=== PATIENT | female | born 1935 | race Caucasian/White ===

== ENCOUNTER → 2016-04-07 | Emergency (ER) | payer MEDICARE ==
--- NOTE | 2016-04-07 12:44 | ED ---
Shortness of Breath - HPI Summary HPI Summary: Patient presents for evaluation of recurrent shortness of breath. Patient was at home and feeling congested, but then became scared and asked her to bring her to the hospital for evaluation. Symptoms are now resolved without allev factors attempted. Did not smoke today before the event. Denies chest pain, systemic symptoms, headache, back/abd pain. No specific aggrav factors. - History of Current Complaint Chief Complaint: EDShortnessOfBreath Time Seen by Provider: 04/07/16 12:21 Hx Obtained From: Patient, Family/Leather Skinner Onset/Duration: Sudden Onset, Resolved Timing: Intermittent Episodes Lasting: Current Severity: None Aggrevating Factors: Nothing Alleviating Factors: Nothing Associated Signs & Symptoms: Cough (Productive) - Allergy/Home Medications Allergies/Adverse Reactions: Allergies Allergy/AdvReac Type Severity Reaction Status Date / Time No Known Allergies Allergy Verified 09/26/13 08:36 Home Medications: Home Medications Azithromycin TAB* [Zithromax TAB (Z-ESPERANZA) 250 mg #6 tabs] 250 mg PO DAILY [History Confirmed 04/07/16] Donepezil TAB* [Aricept TAB*] 10 mg PO DAILY 04/07/16 [History Confirmed ] Memantine TAB* [Namenda TAB*] 10 mg PO BID 04/07/16 [History Confirmed 04/07/16] Sertraline* [Zoloft*] 50 mg PO DAILY 04/07/16 [History Confirmed 04/07/16] predniSONE TAB* [Deltasone TAB*] 40 mg PO DAILY 04/07/16 [History Confirmed 05/19] PMH/Surg Hx/FS Hx/Imm Hx Endocrine/Hematology History: Reports: Hx Thyroid Disease Cardiovascular History: Reports: Hx Hypercholesterolemia Respiratory History: Reports: Hx Chronic Obstructive Pulmonary Disease (COPD) Sensory History: Reports: Hx Contacts or Glasses Denies: Hx Hearing Aid Opthamlomology History: Reports: Hx Contacts or Glasses - Surgical History Surgery Procedure, Year, and Place: L Hip replacement - L wrist fracture - partial thyroidectomy Infectious Disease History: No Infectious Disease History: Denies: Hx Hepatitis, Hx Shingles, Hx Tuberculosis, Traveled Outside the [place] in Last 30 Days - Social History Alcohol Use: Rare Substance Use Type: Reports: None Smoking Status (MU): Current Every Day Smoker Type: Cigarettes Have You Smoked in the Last Year: Yes Review of Systems Constitutional: Negative Negative: Fever, Chills Positive: Other - Nasal Congestion Cardiovascular: Negative Negative: Palpitations, Chest Pain Positive: Shortness Of Breath, Cough Gastrointestinal: Negative Negative: Abdominal Pain Neurological: Negative Negative: Headache, Weakness All Other Systems Reviewed And Are Negative: Yes Physical Exam Triage Information Reviewed: Yes Vital Signs On Initial Exam: Initial Vitals Temp Pulse Resp BP Pulse Ox 97.2 F 72 20 130/56 94 04/07/16 12:21 04/07/16 12:21 04/07/16 12:21 04/07/16 12:21 04/07/16 12:21 Vital Signs Reviewed: Yes Appearance: Positive: Well-Appearing, No Pain Distress, Well-Nourished Skin: Positive: Warm, Skin Color Reflects Adequate Perfusion, Dry Eyes: Positive: Normal, EOMI, JAZIEL ENT: Positive: Normal ENT inspection, Hearing grossly normal, Pharynx normal, Nasal congestion. Negative: Nasal drainage, Tonsillar swelling, Tonsillar exudate, Trismus, Muffled/hoarse voice Neck: Positive: Supple, Nontender, No Lymphadenopathy Respiratory/Lung Sounds: Positive: Clear to Auscultation, Breath Sounds Present. Negative: Wheezes Cardiovascular: Positive: Normal, RRR, Pulses are Symmetrical in both Upper and Lower Extremities Abdomen Description: Positive: Nontender, No Organomegaly, Soft Musculoskeletal: Positive: Normal, Strength/ROM Intact Neurological: Positive: Normal, Sensory/Motor Intact, Alert, Oriented to Person Place, Time, CN Intact II-III, Normal Gait Diagnostics - Vital Signs Vital Signs Temp Pulse Resp BP Pulse Ox 04/07/16 12:21 97.2 F 72 20 130/56 94 - Laboratory Result Diagrams: 04/07/16 12:30 04/07/16 12:30 Lab Statement: Any lab studies that have been ordered have been reviewed, and results considered in the medical decision making process. - EKG No standard instances Cardiac Rate: NL EKG Rhythm: Sinus Rhythm ST Segment: Normal Re-Evaluation - Re-Evaluation First Eval Change: Improved - Patient and are deferring further testing and will FU with PCP. Patient does not like PCP due to his uatsdin; however, I convinced them both to FU for now and to seek different PCP if they cannot work out the difference. Return instructions given. Course/Dx - Diagnoses Differential Diagnosis/HQI/PQRI: Positive: Bronchitis, CHF, Pneumonia, Other - Primary concern for bronchitis vs occult PNA. Nontoxic appearing and low concern for ischemic chest pain. CXR for PNA. Provider Diagnoses: Palpitations Discharge - Discharge Plan Condition: Good Disposition: HOME Patient Education Materials: Dyspnea (ED) Referrals: Kristi Aly MD [Medical Doctor] - 3 Days
[2016-04-07 12:55] LABS: Hematocrit 47 % (35-47); Hemoglobin 15.2 g/dl (12.0-16.0); Mean Corpuscular HGB Conc 33 g/dl (31-36); Mean Corpuscular Hemoglobin 28 pg (27-31); Mean Corpuscular Volume 86 fL (80-97); Mean Platelet Volume 8 um3 (7.4-10.4); Red Blood Count 5.45 10^6/ul (4.0-5.4); Red Cell Distribution Width 14 % (10.5-15)
[2016-04-07 13:06] LABS: BUN/Creatinine Ratio 12.4 (8-20); Calcium 9.4 mg/dL (8.6-10.3); EGFR African American 59.3 (>60); EGFR Non-African American 46.1 (>60); Potassium 3.6 mmol/L (3.5-5.0)
[2016-04-07 13:08] LABS: Troponin I 0.01 ng/mL (<0.04)
--- NOTE | 2016-04-07 13:40 | RAD ---
INDICATION: Cough COMPARISON: November 24, 2014 TECHNIQUE: PA and lateral dual-energy views were obtained. FINDINGS: Bones/Soft Tissues: There are no acute bony findings. There is osteopenia with kyphosis Cardiomediastinal: The cardiomediastinal silhouette is normal. Lungs: There are no infiltrates. There is hyperinflation. Pleura: There are no pleural effusions. Other: None IMPRESSION: HYPERINFLATION. NO ACTIVE DISEASE.
[2016-04-07 14:53] VITALS: BP 126/56
== END | disposition home or self-care (01) ==
LOC: ED 12:16
DX: R00.2 Palpitations (principal); E78.00 Pure hypercholesterolemia, unspecified; J44.9 Chronic obstructive pulmonary disease, unspecified; F17.210 Nicotine dependence, cigarettes, uncomplicated
CPT/HCPCS: 36415; 71020; 80048; 83880; 84484; 85027; 85379; 93005; 99282

== ENCOUNTER 2018-02-14 17:06 | Inpatient (IN) | payer MEDICARE ==
--- NOTE | 2018-02-14 17:29 | ED ---
Lower Extremity - HPI Summary HPI Summary: An 82 y/o female brought in by [facility] presents to [facility] with a chief complaint of left knee pain post mechanical fall down the stairs at 16:00 02/14/18. She rates her pain as a 10/10. The patient denies hip, back, head or neck pain. She states that she was planning on going outside when this fall occurred. She was given fentanyl from EMS. She is unsure if she fell forward or backwards. - History of Current Complaint Chief Complaint: EDHipPelvisInjury Stated Complaint: LT LEG INJURY Time Seen by Provider: 02/14/18 17:11 Hx Obtained From: Patient, EMS Mechanism Of Injury: Fall From A Standing Position - down the stairs Onset of Pain: Immediate, Post Accident, Prior to Arrival Onset/Duration: Hours Severity Initially: Severe Severity Currently: Severe Pain Intensity: 10 Pain Scale Used: 0-10 Numeric Timing: Constant Location: Is Discrete @ - left knee Character Of Pain: Sharp Associated Signs And Symptoms: Positive: Knee Pain. Negative: Fever - Allergies/Home Medications Allergies/Adverse Reactions: Allergies Allergy/AdvReac Type Severity Reaction Status Date / Time No Known Allergies Allergy Verified 02/14/18 17:17 Home Medications: Home Medications Albuterol inh POWDER (NF) [Proair Respiclick] 1 puff INH Q6HR PRN 02/14/18 [ History Confirmed 02/14/18] Simvastatin TAB(NF) [Zocor(NF)] 10 mg PO DAILY 02/14/18 [History Confirmed 02/14] PMH/Surg Hx/FS Hx/Imm Hx Endocrine/Hematology History: Reports: Hx Thyroid Disease Cardiovascular History: Reports: Hx Hypercholesterolemia Respiratory History: Reports: Hx Chronic Obstructive Pulmonary Disease (COPD) Sensory History: Reports: Hx Contacts or Glasses Denies: Hx Hearing Aid Opthamlomology History: Reports: Hx Contacts or Glasses - Surgical History Surgery Procedure, Year, and Place: L Hip replacement - L wrist fracture - partial thyroidectomy Infectious Disease History: No Infectious Disease History: Denies: Hx Hepatitis, Hx Shingles, Hx Tuberculosis, Traveled Outside the [place] in Last 30 Days - Family History Known Family History: Negative: Hypertension, Diabetes - Social History Alcohol Use: Rare Substance Use Type: Reports: None Hx Tobacco Use: Yes Smoking Status (MU): Current Every Day Smoker Type: Cigarettes Have You Smoked in the Last Year: Yes Review of Systems Negative: Fever Musculoskeletal: Negative - hip, head, back or neck pain Positive: Myalgia - left knee pain All Other Systems Reviewed And Are Negative: Yes Physical Exam - Summary Physical Exam Summary: VITAL SIGNS: Reviewed. GENERAL: Patient is a well-developed and nourished FEMALE who is lying comfortable in the stretcher. Patient is not in any acute respiratory distress. HEAD AND FACE: No signs of trauma. No ecchymosis, hematomas or skull depressions. No sinus tenderness. EYES: PERRLA, EOMI x 2, No injected conjunctiva, no nystagmus. EARS: Hearing grossly intact. Ear canals and tympanic membranes are within normal limits. MOUTH: Oropharynx within normal limits. NECK: Supple, trachea is midline, no adenopathy, no JVD, no carotid bruit, no c- spine tenderness, neck with full ROM. CHEST: Symmetric, no tenderness at palpation LUNGS: Clear to auscultation bilaterally. No wheezing or crackles. CVS: Regular rate and rhythm, S1 and S2 present, no murmurs or gallops appreciated. ABDOMEN: Soft, non-tender. No signs of distention. No rebound no guarding, and no masses palpated. Bowel sounds are normal. EXTREMITIES: Decreased ROM left knee secondary to pain. No ecchymosis or hematoma. NEURO: Alert and oriented x 3. No acute neurological deficits. Speech is normal and follows commands. SKIN: Dry and warm Triage Information Reviewed: Yes Vital Signs On Initial Exam: Initial Vitals Temp Pulse Resp BP Pulse Ox 96.9 F 73 17 117/63 97 02/14/18 17:11 02/14/18 17:11 02/14/18 17:11 02/14/18 17:11 02/14/18 17:11 Vital Signs Reviewed: Yes Diagnostics - Vital Signs Vital Signs Temp Pulse Resp BP Pulse Ox 02/14/18 17:11 96.9 F 73 17 117/63 97 - Laboratory Result Diagrams: 02/14/18 18:05 02/14/18 18:05 Lab Statement: Any lab studies that have been ordered have been reviewed, and results considered in the medical decision making process. - Radiology knee x-ray Radiology Interpretation Completed By: Radiologist Summary of Radiographic Findings: 1. LATERAL SUBLUXATION OF THE TIBIA RELATIVE TO THE DISTAL FEMUR. 2. IMPACTED FRACTURE OF THE MEDIAL AND LATERAL TIBIAL PLATEAU. 3. LIPOHEMARTHROSIS. ED physician has reviewed this imaging report. femur x-ray Radiology Interpretation Completed By: Radiologist Summary of Radiographic Findings: LATERAL SUBLUXATION OF THE TIBIA RELATIVE TO THE DISTAL FEMUR AND A IMPACTED. FRACTURE OF THE MEDIAL AND LATERAL TIBIAL PLATEAU. ED physician has reviewed this imgaging report. - CT lower extremity CT Interpretation Completed By: Radiologist Summary of CT Findings: 1. Acute comminuted and impacted fractures involving the medial and lateral. tibial plateaus with up to 8 mm impaction periphery of the medial plateau and 4. mm impaction centrally in the lateral plateau. 2. Large associated lipohemarthrosis. Ed physician has reviewed this imaging report. Re-Evaluation - Re-Evaluation First Eval Re-Evaluation Time: 17:35 Change: Unchanged Comment: Patient requesting pain medication Second Eval Re-Evaluation Time: 19:45 Change: Unchanged Comment: Discussed plan for patient. Lower Extremity Course/Dx - Course Assessment/Plan: An 82 y/o female brought in by [facility] presents to [facility] with a chief complaint of left knee pain post mechanical fall down the stairs at 16:00 02/14/18. She rates her pain as a 10/10. The patient denies hip , back, head or neck pain. She states that she was planning on going outside when this fall occurred. She was given fentanyl from EMS. She is unsure if she fell forward or backwards. X-ray of the knee impression: Lateral subluxation of the tibia relative to the distal femur. Impacted fracture of the medial and lateral tibial plateau. Left knee CT IMPRESSION: 1. Acute comminuted and impacted fractures involving the medial and lateral. tibial plateaus with up to 8 mm impaction periphery of the medial plateau and 4. mm impaction centrally in the lateral plateau. 2. Large associated lipohemarthrosis. Blood work shows a wbc's of 15, creatinine 0.97, glucose 129. In the ED course and the patient was given IV fluids and fentanyl for the pain. At this point I discussed the case with Dr. Ferrera from orthopedics and he recommends a CT of the knee and if the patient is able to ambulate the patient can be discharged home if not she can be admitted to the medical team. I tried to ambulate the patient and she is in severe pain and she will be able to be non weightbearing therefore I discussed the case with Dr. Heaton from the hospital services was accepted patient for admission. The patient is hemodynamically stable alert oriented 3. - Diagnoses Provider Diagnoses: Left tibial fracture - Physician Notifications Discussed Care Of Patient With: Karoline Heaton Time Discussed With Above Provider: 19:45 Instructed by Provider To: Admit As Inpatient Discharge - Sign-Out/Discharge Documenting (check all that apply): Patient Departure - admit - Discharge Plan Condition: Fair Disposition: ADMITTED TO [facility] Referrals: No Primary Care Phys,NOPCP [Primary Care Provider] - - Billing Disposition and Condition Condition: FAIR Disposition: Admitted to [facility] - Attestation Statements Document Initiated by Peter: Yes Documenting Scribe: Chris Padron Provider For Whom Peter is Documenting (Include Credential): Efra Moreland MD Scribe Attestation: IChris, scribed for Efra Moreland MD on 02/14/18 at 2110. Scribe Documentation Reviewed: Yes Provider Attestation: The documentation as recorded by the Chris valle accurately reflects the service I personally performed and the decisions made by me, Efra Moreland MD Status of Scribdemetra Document: Viewed Consult Consult: At 17:[address] Ferrera who recommended a CT.
[2018-02-14] MEDS ORDERED: NS 0.9% 1000 ML* 1,000 ML IV ONE ×2 (17:58→19:26)
[2018-02-14] MEDS ORDERED: fentaNYL* 50 MCG/ML 2 ML VIAL (100 MCG VIAL) IV SLOW PU ONE (17:58)
[2018-02-14 18:18] LABS: ABS Basophils 0.1 10^3/ul (0-0.2); ABS Eosinophils 0.2 10^3/ul (0-0.6); ABS Lymphocytes 1.3 10^3/ul (1.0-4.8); ABS Monocytes 0.6 10^3/ul (0-0.8); ABS Neutrophils 12.8 10^3/ul (1.5-7.7); ABS Nucleated RBC 0 10^3/ul; Eosinophil % 1.2 %; Hematocrit 36 % (35-47); Hemoglobin 11.9 g/dl (12.0-16.0); Lymphocyte % 8.9 %; Mean Corpuscular HGB Conc 33 g/dl (31-36); Mean Corpuscular Hemoglobin 28 pg (27-31); Mean Corpuscular Volume 87 fL (80-97); Mean Platelet Volume 7.2 fL (7.4-10.4); Nucleated Red Blood Cells % 0; Platelet Count 319 10^3/ul (150-450); Red Blood Count 4.19 10^6/ul (4.00-5.40); Red Cell Distribution Width 14 % (10.5-15)
[2018-02-14 18:36] LABS: Albumin 3.7 g/dL (3.2-5.2); Albumin/Globulin Ratio 1.6 (1-3); BUN/Creatinine Ratio 13.4 (8-20); C Reactive Protein 3.21 mg/L (<8.01); Calcium 8.6 mg/dL (8.6-10.3); EGFR Non-African American 54.8 (>60); Globulin 2.3 g/dL (2-4); Potassium 4.7 mmol/L (3.5-5.0); Total Bilirubin 0.4 mg/dL (0.2-1.0)
[2018-02-14] MEDS ORDERED: oxyCODONE/Acetamin 5/325 MG* TAB PO ONE (19:27)
[2018-02-14] MEDS ORDERED: LORazepam INJ* 2 MG/ML 1 ML VIAL ONE (19:57)
[2018-02-14] MEDS ORDERED: LORazepam INJ* 2 MG/ML 1 ML VIAL IV PUSH ONE (19:59)
[2018-02-14] MEDS ORDERED: Ondansetron INJ* 2 MG/ML VIAL IV PRN (21:08)
[2018-02-14] MEDS ORDERED: Albuterol HFA INHALER* 8 gm MDI INH PRN (21:14)
[2018-02-14 22:01] LABS: Urine Appearance Cloudy; Urine Bacteria 1+ (Absent); Urine Bilirubin Negative (Negative); Urine Blood Negative (Negative); Urine Color Yellow; Urine Glucose Negative (Negative); Urine Ketones Trace (Negative); Urine Nitrite Positive (Negative); Urine Protein Negative (Negative); Urine Red Blood Cell Absent (Absent); Urine Specific Gravity 1.014 (1.010-1.030); Urine Urobilinogen Negative (Negative); Urine White Blood Cell 3+(>20/hpf) (Absent)
[2018-02-14] MEDS ORDERED: NS 0.9% 500 ML* 500 ML IV ONE (23:00)
[2018-02-14] MEDS: NS 0.9% 1000 ML* 1,000 ML IV SCH (23:39)
[2018-02-15] MEDS: Heparin VIAL(*) 5000 UNITS/ML VIAL (FIVE THOUSAND) SUBCUT SCH ×4 (00:29→22:04)
[2018-02-15] MEDS: Morphine VIAL* 4 MG/ML VIAL (1 ml vial) IV PRN ×6 (00:35→18:23)
[2018-02-15] MEDS: Acetaminophen TAB* 325 MG PO PRN ×2 (02:33→22:04)
[2018-02-15] MEDS: cefTRIAXone(*) 1 GM in NS 0.9% 50 ML* 50 ML IVPB SCH (02:38)
[2018-02-15 05:08] LABS: ABS Basophils 0 10^3/ul (0-0.2); ABS Eosinophils 0 10^3/ul (0-0.6); ABS Lymphocytes 0.8 10^3/ul (1.0-4.8); ABS Monocytes 0.6 10^3/ul (0-0.8); ABS Neutrophils 8.8 10^3/ul (1.5-7.7); ABS Nucleated RBC 0 10^3/ul; Eosinophil % 0 %; Hematocrit 31 % (35-47); Hemoglobin 10.7 g/dl (12.0-16.0); Lymphocyte % 7.5 %; Mean Corpuscular HGB Conc 34 g/dl (31-36); Mean Corpuscular Hemoglobin 29 pg (27-31); Mean Corpuscular Volume 86 fL (80-97); Mean Platelet Volume 7.4 fL (7.4-10.4); Nucleated Red Blood Cells % 0; Platelet Count 260 10^3/ul (150-450); Red Blood Count 3.64 10^6/ul (4.00-5.40); Red Cell Distribution Width 14 % (10.5-15); White Blood Count 10.3 10^3/ul (3.5-10.8)
[2018-02-15 05:13] LABS: INR 0.87 (0.77-1.02)
[2018-02-15 05:20] LABS: BUN/Creatinine Ratio 14.3 (8-20); Calcium 7.8 mg/dL (8.6-10.3); EGFR Non-African American 64.8 (>60); Potassium 4.1 mmol/L (3.5-5.0)
[2018-02-15] MEDS: Atorvastatin* 10 MG TAB PO SCH (08:16)
[2018-02-15] MEDS: Memantine TAB* 10 MG PO SCH ×2 (08:16→22:04)
[2018-02-15] MEDS: Sertraline* 50 MG TAB PO SCH (08:17)
--- NOTE | 2018-02-15 10:26 | HP ---
HISTORY AND PHYSICAL: DATE OF ADMISSION: 02/14/18 PROVIDER: Sierra Javier NP PRIMARY CARE PROVIDER: Unknown. ATTENDING PHYSICIAN WHILE IN THE HOSPITAL: Karoline Heaton MD * (dictated by Sierra Javier NP) CHIEF COMPLAINT: Fall. HISTORY OF PRESENT ILLNESS: History of present illness was obtained from her emergency room chart as the patient is unable to give complete details of what happened prior to her admission to the emergency room and no family is available to obtain history from. According to the emergency room report, the patient was brought in by [facility] with left knee after mechanical fall down the stairs at 1600. On arrival to the emergency room, she rated her pain at a 10/10. The patient denied hip, back, head, or neck pain. She states that she was planning on going outside when the fall occurred. She was given fentanyl in the ambulance in route to the emergency room and the patient was unsure whether she fell forward or backward. While in the emergency room, the patient was agitated, in severe pain. She did receive fentanyl and oxycodone as well as lorazepam. On evaluation for admission to the hospital, the patient is drowsy and opens eyes to verbal stimuli. She does answer some questions, but is very confused reporting that the year is 1917 and the month is December. She reports that she believes she is at home. The patient does have baseline dementia. The patient continues to deny any back or neck pain. She does complain of left hip pain with palpation as well as left thigh pain and left buttocks pain with palpation. The patient does deny any chest pain or shortness of breath, but again it is difficult to get a review of systems as the patient is drowsy and confused after receiving lorazepam. The patient did have x-rays in the emergency room and she was found to have a left tibial plateau fracture. So, due to her tibial plateau fracture, we were asked to see and evaluate her for admission. PAST MEDICAL HISTORY: Significant for: 1. Hypertension. 2. COPD. 3. Hyperlipidemia. 4. Dementia. 5. Anxiety. PAST SURGICAL HISTORY: 1. Left hip replacement. 2. History of left wrist fracture. 3. Partial thyroidectomy. FAMILY HISTORY: Unobtainable. SOCIAL HISTORY: The patient denies any illicit drug use. Unsure of current smoking or alcohol use. Surrogate decision maker in the event she is unable to make her own decisions is her . She is a full code according to her medical records; this needs to be addressed. REVIEW OF SYSTEMS: The patient denies chest pain or shortness of breath. Denies any nausea, vomiting, or diarrhea. Denies any abdominal pain. She does report left hip pain with palpation, left buttocks pain with palpation, left thigh pain with palpation. The patient is drowsy and the rest of her review of systems is unobtainable at this time due to her current mental state and confusion. PHYSICAL EXAMINATION GENERAL: At this time, Ms. Valerio is an 82-year-old female. She is lying on the stretcher in the emergency room. She is confused to person, place, and time. She does not appear to be in any acute distress. VITAL SIGNS: Blood pressure was 98/61, temperature 98.6, heart rate 73, respirations were 22, O2 saturation 97% on room air. HEENT: Head is atraumatic, normocephalic. Eyes: EOMs are intact. Sclerae anicteric and not pale. Oral mucosa appears to be dry. NECK: Supple. No tenderness with palpation to the C-spine. LUNGS: Clear to auscultation bilaterally. No wheezes, rales, or rhonchi. CARDIAC: S1, S2. Regular rate and rhythm. No murmurs, rubs, or gallops. ABDOMEN: Soft and nontender. Bowel sounds are present x4. EXTREMITIES: Pulses are +2 bilaterally. Pedal pulses are +2. She is able to move her upper extremities with 5/5 strength. She does have limited range of motion to her left lower extremity due to pain. She does have pain with palpation to the left hip and left buttocks. NEUROLOGIC: She is confused. She is oriented to name only. She is drowsy, resting on the stretcher in the emergency room. Her speech is clear. She is arousable to verbal stimuli. SKIN: Intact. DIAGNOSTIC STUDIES/LABORATORY DATA: WBCs are 15.0, RBCs 4.19, hemoglobin 11.9 , hematocrit was 36, platelet count 319. Sodium 137, potassium 4.7, chloride 107, carbon dioxide was 24, anion gap was 6, BUN was 13, creatinine 0.97, glucose was 129. Calcium 8.6. ASTs were 16, ALTs were 9, alkaline phosphatase was 100. Troponin was 0.00. C-reactive protein 3.21. Urine color is cloudy, pH is 5, specific gravity 0.014, urine protein was negative, urine ketones were trace, urine blood was negative, urine nitrites are positive, urobilinogen was negative, urine leukocyte esterase was 2+, wbc's were 3+, rbc's were absent, squamous epithelial cells were present, bacteria was present, glucose was negative. The patient had a femur x-ray, radiologist's impression: Lateral subluxation of tibia relative to the distal femur and impacted fracture of the medial and lateral tibial plateau. She had a left knee x-ray, lateral subluxation of the tibia relative to the distal femur, impacted fracture of the medial and lateral tibial plateau, lipohemarthrosis. She had a CT of the lower extremity, radiologist's impression: Acute comminuted and impacted fracture involving the medial and lateral tibial plateaus with up to 8 mm impaction, peripherally of the medial plateau and 4 mm impaction centrally of the lateral plateau, large associated lipohemarthrosis. She had a CT of the brain, no acute intracranial pathology was demonstrated on the CT. She had a CT of the pelvis, underlying left hip hemiarthroplasty with no adjacent fractures, no additional findings to correlate with the patient's symptomatology and distal colonic diverticulosis. Chest x-ray is currently pending. ASSESSMENT AND PLAN: Ms. Valerio is an 82-year-old female who presented to the emergency room by ambulance after a fall. We were asked to see and evaluate her due to her tibial plateau fracture. She will be admitted inpatient for: 1. Fall. I suspect this is a mechanical fall at this time as the patient did report that she was walking down the stairs and then fell, but was unsure whether she felt forward or backwards. The patient is lethargic, is drowsy after receiving lorazepam, fentanyl, and oxycodone in the emergency room, so history of present illness is difficult to obtain. I will get a CT of the head due to her fall to evaluate any intracranial pathology. I will also get a chest x-ray to rule out any underlying illness. I will obtain an EKG to rule out any cardiac arrhythmias or abnormalities on the EKG. I will get a troponin and a urinalysis. I will give her gentle hydration. 2. Left tibial plateau fracture. I did consult Dr. Ferrera from Orthopedics. He will see the patient in the morning. He recommended a knee immobilizer at this time and he will make further recommendations in the morning. 3. Urinary tract infection. They did obtain a urine. She does appear to have a urinary tract infection. I will start her on ceftriaxone, cultures are currently pending, as this could be contributory to her fall. Again, I will give her gentle IV hydration overnight, normal saline at 100 cc per hour. 4. Leukocytosis. I suspect her leukocytosis could be related to her underlying urinary tract infection. She will be treated with ceftriaxone 1 g IV q.24 hours. 5. Dementia. She will continue on Namenda as previously prescribed at home. 6. Anxiety. She will continue on sertraline as previously prescribed at home. 7. She has a history of hypertension. She is not currently on any medications at home. We will continue to monitor for any signs of hypertension at this point. She is mildly hypotensive, suspect this is related to the pain medications and lorazepam the patient received in the emergency room. I will continue with gentle hydration overnight and monitor her blood pressure. 8. FEN: She can have a cardiac diet, caffeine okay. 9. DVT prophylaxis: I will place her on heparin subcu. 10. Code status: She is a full code. This needs to be clarified with the in the a.m. I did attempt to reach the , but no answer. TIME SPENT: Time spent on this admission was 60 minutes, greater than half the time was spent [id number] with the patient obtaining my history and physical, the other half of the time was spent with the patient completing my physical exam and implementing my plan of care. I will discuss this with my attending, Dr. Karoline Heaton; she is in agreement with my plan. SIERRA JAVIER, BOZENA [id number]/[facility] #: [id number] CLARISA
--- NOTE | 2018-02-15 14:29 | PN ---
Subjective Date of Service: 02/15/18 Interval History: Pt resting comfortably in bed with family at bedside. She does experience sharp pain in her left leg and knee with any movement, but is due for her pain medications now. She denies any chest pain, shortness of breath, palpitations, headache, nausea/vomiting, abdominal pain. She does endorse dysuria. Surgical Clearance: History obtained from the patient as well as her daughter who was at bedside due to the patient's dementia. The patient will not be undergoing vascular, intraperitoneal or intrathoracic surgery. She does not have a history of ischemic heart disease, heart failure, or diabetes. She does not have a pre-op creatinine >2. The patient does not have a history of CVA, but the patient's daughter reports she might have had TIAs. The patient and her daughter say that she is able to do housework and climb a flight of stairs without chest pain or severe shortness of breath. According to the [employer], she has 1 risk factor, which places her at a 0.9% risk of major cardiac event. METs score > 4. EKG shows NSR without any acute changes. Mrs. Valerio is medically optimized and may proceed to the OR. Objective Active Medications: Acetaminophen (Tylenol Tab*) 650 mg PO Q4H PRN PRN Reason: FEVER/PAIN Last Admin: 02/15/18 02:33 Dose: 650 mg Albuterol (Ventolin Hfa Inhaler*) 1 puff INH Q6HR PRN PRN Reason: SHORTNESS OF BREATH Atorvastatin Calcium (Lipitor*) 5 mg PO DAILY [facility] Last Admin: 02/15/18 08:16 Dose: 5 mg Heparin Sodium (Porcine) (Heparin Vial(*)) 5,000 units SUBCUT Q8HR [facility] Last Admin: 02/15/18 05:17 Dose: 5,000 units Sodium Chloride (Ns 0.9% 1000 Ml*) 1,000 mls @ 100 mls/hr IV PER RATE [facility] Last Admin: 02/14/18 23:39 Dose: 100 mls/hr Ceftriaxone Sodium 1 gm/ (Sodium Chloride) 50 mls @ 200 mls/hr IVPB Q24H [facility] Last Admin: 02/15/18 02:38 Dose: 200 mls/hr Memantine (Namenda Tab*) 10 mg PO BID [facility] Last Admin: 02/15/18 08:16 Dose: 10 mg Morphine Sulfate (Morphine Vial*) 2 mg IV Q3H PRN PRN Reason: PAIN - MILD Last Admin: 02/15/18 11:13 Dose: 2 mg Ondansetron HCl (Zofran Inj*) 4 mg IV Q4H PRN PRN Reason: NAUSEA/VOMITING Sertraline HCl (Zoloft*) 50 mg PO DAILY [facility] Last Admin: 02/15/18 08:17 Dose: 50 mg Vital Signs - 8 hr 02/15/18 02/15/18 02/15/18 07:20 08:00 08:08 Temperature 98.3 F Pulse Rate 71 Respiratory 16 18 18 Rate Blood Pressure 102/43 (mmHg) O2 Sat by Pulse 100 Oximetry 02/15/18 02/15/18 02/15/18 09:23 11:13 11:23 Temperature 98.5 F Pulse Rate 70 Respiratory 18 18 16 Rate Blood Pressure 95/48 (mmHg) O2 Sat by Pulse 99 Oximetry 02/15/18 12:32 Temperature Pulse Rate Respiratory 18 Rate Blood Pressure (mmHg) O2 Sat by Pulse Oximetry Oxygen Devices in Use Now: Nasal Cannula Eyes: No Scleral Icterus Ears/Nose/Mouth/Throat: NL Teeth, Lips, Gums Neck: NL Appearance and Movements; NL JVP, Trachea Midline Respiratory: Symmetrical Chest Expansion and Respiratory Effort, Clear to Auscultation Cardiovascular: NL Sounds; No Murmurs; No JVD, RRR Abdominal: NL Sounds; No Tenderness; No Distention Extremities: - - Left knee with edema. 1+ DP and PT pulses. Sensation intact. Skin: No Rash or Ulcers Neurological: NL Sensation, - - Oriented to self, year, president, but not location. Lines/Tubes/Other Access: Clean, Dry and Intact Peripheral IV Nutrition: Taking PO's Result Diagrams: 02/15/18 04:50 02/15/18 04:50 Assess/Plan/Problems-Billing Assessment: Mrs Valerio is an 82 year old female with a H Dementia, Anxiety, Depression, HLD who presented with the ED after sustaining a mechanical fall down some stairs. Found to have a left tibial plateau fracture as well as a UTI. Started on ceftrixone. Plan for ORIF with Dr. Michael this afternnon or early tomorrow. - Patient Problems (1) Tibial plateau fracture, left Current Visit: Yes Status: Acute Code(s): S82.142A - DISPLACED BICONDYLAR FRACTURE OF LEFT TIBIA, INIT SNOMED Code(s): 586925867 Comment: - CT with acute comminuted an impacted fractures involving the medial and lateral tibial plateaus. Large associated lipohemarthrosis - Plan for ORIF of left knee fracture with Dr Michael later today or tomorrow. Continue with knee immobilization per ortho. - Surgical clearance as above - Pain control with morphine. Bowel regimen added. (2) UTI (urinary tract infection) Current Visit: Yes Status: Acute Comment: - Pt with complaints of dysuria. No suprapubic pain or flank pain. - Continue ceftriaxone and gentle hydration. Afebrile without leukocytosis. - Urine culture pending (3) COPD (chronic obstructive pulmonary disease) Current Visit: Yes Status: Acute Code(s): J44.9 - CHRONIC OBSTRUCTIVE PULMONARY DISEASE, UNSPECIFIED SNOMED Code(s): 44902529 Comment: - No wheezing on exam - Pt does have rescue inhaler ordered, however as pt is stilla current smoker, I have added PRN duonebs in case she needs these post operatively (4) Dementia Current Visit: Yes Status: Acute Code(s): F03.90 - UNSPECIFIED DEMENTIA WITHOUT BEHAVIORAL DISTURBANCE SNOMED Code(s): 91050887 Comment: - Continue memantine and supportive care (5) Hypertension Current Visit: Yes Status: Acute Code(s): I10 - ESSENTIAL (PRIMARY) HYPERTENSION SNOMED Code(s): 77444111 Comment: - Pt does not take any antihypertensives at home and has not been hypertensive this admission, in fact she has been hypotensive in the setting of pain medication - Continue gentle IVF hydration to support blood pressure (6) DVT prophylaxis Current Visit: Yes Status: Acute Code(s): FVQ5292 - SNOMED Code(s): 445965272 Comment: - Continue SQ heparin. Post op anticoagulation per ortho (7) Full code status Current Visit: Yes Status: Acute Code(s): Z78.9 - OTHER SPECIFIED HEALTH STATUS SNOMED Code(s): 068555838 Status and Disposition: Inpatient. Discharge when medically stable.
--- NOTE | 2018-02-15 14:43 | CONS ---
CONSULTATION REPORT: DATE OF CONSULT: 02/15/18 ATTENDING PHYSICIAN: Dr. Ferrera/Dr. Michael. ADMITTING SERVICE: Medicine. ADMITTING DIAGNOSIS: Status post fall, 02/14/18 with resulting impacted fractures of the medial and lateral tibial plateaus on the left knee. HISTORY OF PRESENT ILLNESS: The patient is an 82-year-old female who lives with her independently, who is known to have dementia at baseline, who suffered from a mechanical fall down the stairs at 1600 on 02/14/18. She was brought to the emergency room where she was found to have displaced plateau fractures on both the medial and lateral side of the left knee and placed in a knee immobilizer. She was admitted. On examination today, the patient does not answer questions completely; however , the majority of her history is given by her daughter. She states that her mother is at baseline, quite ambulatory and is able to cook meals and clean the home on her own; however, does have a history of dementia and has very poor short term memory. She is concerned about her mother returning home as she is unlikely to remember any explanations or restrictions that she may have. The patient is drowsy appearing, resting in bed comfortably. She does not complain of any pain to her back or her neck, but does have pain with palpation over her left thigh, left knee and left ankle. PAST MEDICAL HISTORY: 1. Hypertension. 2. COPD, current smoker. 3. Hyperlipidemia. 4. Dementia. 5. History of anxiety. PAST SURGICAL HISTORY: 1. Left hip replacement approximately 12 years ago. 2. History of left wrist fracture. 3. Partial thyroidectomy. MEDICATIONS: Hospital medications include: 1. Acetaminophen 650 mg p.o. q.4 hours p.r.n. 2. Zofran 4 mg IV q.4 hours. 3. Albuterol inhaler q.6 hours p.r.n. 1 puff. 4. Normal saline 100 mL per hour. 5. Heparin 5000 International Units subcu q.8 hours. 6. Ceftriaxone 50 mL q.24 hours. 7. Atorvastatin 5 mg p.o. daily. 8. Namenda 10 mg p.o. b.i.d. 9. Zoloft 50 mg p.o. daily. 10. Morphine 2 mg IV q.3 hours p.r.n. SOCIAL HISTORY: Positive current tobacco use. Living with her independently, baseline dementia. PHYSICAL EXAM: General: Well appearing, no acute distress, resting in bed comfortably, unable to answer questions fully. Vital Signs: Temperature 98.5, pulse 70, respirations 16, oxygen saturation 99% on room air, blood pressure 95/ 48. Abdomen: Soft, nontender, nondistended. No organomegaly. Musculoskeletal : No tenderness to palpation over bilateral hips. Negative log roll left or right. Positive tenderness to palpation throughout the right upper thigh. Femoral pulses 2+ bilaterally. Knee examination not performed due to the patient's level of pain; however, tenderness to light palpation over the medial and lateral tibial plateau. Positive joint effusion noted. Negative Homans' sign. Tenderness throughout the left ankle with mild passive range of motion, edema noted with no ecchymosis. Posterior tibial and dorsalis pedis pulses 1+. The patient is able to dorsiflex and plantarflex; however, cries in pain with doing so on left lower extremity. Right lower extremity, the patient is able to dorsiflex and plantarflex with no difficulty. Posterior tibial and dorsalis pedis pulses 1+, negative Homans' sigh, nontender with knee range of motion exercises, no edema noted. No tenderness to palpation over cervical, clavicle, bilateral shoulders, bilateral elbows, or fingers on upper extremities. DIAGNOSTIC STUDIES/LAB DATA: Laboratory data shows a white blood cell count of 10.3, H and H of 10.7 and 31, INR 0.87. Calcium of 7.8. BUN and creatinine of 12 and 0.84. Urinalysis is positive for bacteria, white blood cells, leuk esterase, and nitrites. Culture is currently pending. ASSESSMENT: 1. Baseline dementia. 2. Tibial plateau fractures, medial and lateral, left knee. PLAN: The patient was discussed with Dr. Michael. He reviewed today's x-rays and CT of the lower extremities. The patient's course was discussed with the daughter at length. Due to the patient's history of dementia, age, medical comorbidities, and ambulatory status, it was decided to undergo ORIF of her medial and lateral tibial plateau fractures on the left knee as this was felt to have a better prognosis for the patients. She is awaiting medical clearance with the possibility of surgery this afternoon or tomorrow morning. SHARON FORBES [id number]/[facility] #: [id number] CLARISA
--- NOTE | 2018-02-15 21:04 | CONS ---
CONSULTATION REPORT: DATE OF CONSULT: 02/15/18 REASON FOR CONSULT: Left tibial plateau fracture. HISTORY OF PRESENT ILLNESS: The patient is an 82-year-old woman, with some dementia, who lives with her 85-year-old independently, who walks without assist device, who sustained an injury with a mechanical fall on at approximately 4 p.m., and was taken to [facility] for a complaint of left knee pain. Imaging in the emergency department on the evening of 02/15/18 revealed a left tibial plateau fracture. Orthopedic Surgery was consulted, my partner Dr. Jd Ferrera. Dr. Ferrera requested that I see the patient today, so I am performing this consultation. The patient was with her and daughter at the time of the fall. She was at her daughter's house. The patient fell, missing the last step on some stairs. The patient was taken by ambulance to the emergency room. The patient in the emergency room according to hospitalist thought that the year was 1917 and the month December. The patient believed that she was at home. The patient has been admitted to the hospitalist service with left lower extremity in a knee immobilizer. A CT scan of the left knee was ordered at Dr. Ferrera' recommendation. Urinary tract infection was diagnosed by the hospitalist service and is currently being treated. The patient's family reports that the patient does not use a cane or walker. She walks independently. She does not leave the house or socialize that much. The patient reports that this is twice a month but the patient's daughter thinks that it is more often than that. The patient shops for herself. She cooks, cleans and keeps the house with her on her own despite some dementia. PAST MEDICAL HISTORY: 1. Hypertension. 2. COPD. 3. Hyperlipidemia. 4. Dementia. 5. Anxiety. PAST SURGICAL HISTORY: 1. Left hip arthroplasty for fracture. 2. Partial thyroidectomy. 3. Nonoperative management of left wrist fracture. MEDICATIONS: 1. Acetaminophen p.r.n. 2. Zofran. 3. Albuterol inhaler p.r.n. 4. Atorvastatin. 5. Namenda. 6. Zoloft. In the hospital, the patient currently on, 1. Heparin 5000 units subcu q. 8 hours. 2. Ceftriaxone for urinary tract infection. ALLERGIES: No known drug allergies. SOCIAL HISTORY: According to hospitalist note, the patient's surrogate decision maker is her . She is a full code according to medical records. The patient cooks, cleans, does the laundry at home and shops despite her dementia. She is described by her daughters as not fully compliant with medical recommendations. The patient smokes. The patient's daughter reports that she smokes a pack to a pack and a half per day, unclear for how many years. REVIEW OF SYSTEMS: The patient denies current chest pain or shortness of breath. No headache, nausea or vomiting. No abdominal pain or diarrhea. The patient has left knee pain. She acknowledges also some left ankle pain. She initially had back pain while in the ambulance in the emergency room but denies it now. PHYSICAL EXAM: Most recent vitals are, temperature body 98.2 degrees Fahrenheit , heart rate 69, blood pressure 98/42, O2 saturation 92% on room air, 16 respiratory rate. No acute distress. The patient is not alert and oriented. Appropriate mood and affect. The patient is quite tired and interacts and talks with me but as her eyes closed and has during some of the multiple times I have seen her over the course of today. The patient's left knee exam shows tenderness to palpation of the proximal tibia and pain with passive range of motion of the knee. However, I would describe the soft tissue swelling as mild. The patient easily wrinkles about the medial and lateral aspect of the lower leg and knee. No skin compromise. The patient had some mild soft tissue swelling about the left ankle and some generalized tenderness to palpation of the left ankle. DIAGNOSTIC STUDIES/LAB DATA: White blood cell count is now 10.3 down from 15.0. Neutrophil percentage is 85.9%. Urinalysis demonstrates positive leukocyte esterase and nitrite and positive white blood cells as well as bacteria consistent with a urinary tract infection. INR is 0.87. Imaging: X-rays of the left ankle were obtained today, four views. These showed no fracture. There is some osteopenia. X-rays and CT scan of the left knee demonstrate a bicondylar tibial plateau fracture, displaced, with impaction, angulation, significant depression. I would describe this as a Schatzker type V. The fragments of the medial and lateral tibial plateaus do not seem part of the same fragment and there is no fracture line clearly across the entire shafts, so I do not think it is a Schatzker grade . CT scan of the pelvis shows no fracture about the left hip hemiarthroplasty implant. CT of the brain is unremarkable without intracranial pathology. No spine imaging available. ASSESSMENT: Left tibial plateau fracture, significantly displaced, Schatzker grade V. PLAN: 1. I stopped by the patient's room to see her between every one of my cases today, spending some time with the family and becoming aware of this patient as I just learned of her this morning. 2. Discussed the pros and cons of both operative and nonoperative management of this fracture. Discussed technical aspects of the surgery, potential complications of surgery most principally infection and wound breakdown, timing of surgery, and restrictions regarding weight bearing whether nonoperative or operative treatment would be pursued. 3. Given the deformity of the proximal tibia and the potential for additional deformity, worsening deformity with any weightbearing, intentional or inadvertent, we decided that it would be best to go forward with surgical management, open reduction and internal fixation. 4. To the operating room for open reduction and internal fixation left tibial plateau fracture with lateral and medial tibial plateau locking plates. 5. NPO after midnight for procedure to be performed in the morning of 02/16/18. 6. Management of urinary tract infection as per hospitalist service. 7. I only noted my colleague's Ena Gill' consultation note after I was close to finishing this note but I agree with her comments. 8. We will make sure that the hospitalist service optimizes so that the anesthesia service can clear this patient for surgery. 9. I placed 2 to 3 pillows under the patient's left lower extremity and ice to the left knee at all times as tolerated. 10. I also presume that the patient has a left ankle sprain as the x-rays were negative. We will continue to monitor the left ankle exam and symptoms, although as the patient will be nonweightbearing for a prolonged period of time , this should cause her significant discomfort. [id number]/[facility] #: [id number] CLARISA
[2018-02-15] MEDS: NS 0.9% 1000 ML* 1,000 ML IV SCH (21:59)
[2018-02-16] MEDS: cefTRIAXone(*) 1 GM in NS 0.9% 50 ML* 50 ML IVPB SCH (02:45)
[2018-02-16 07:30] LABS: ABS Basophils 0.1 10^3/ul (0-0.2); ABS Eosinophils 0 10^3/ul (0-0.6); ABS Lymphocytes 0.9 10^3/ul (1.0-4.8); ABS Monocytes 0.7 10^3/ul (0-0.8); ABS Neutrophils 8.2 10^3/ul (1.5-7.7); ABS Nucleated RBC 0 10^3/ul; Eosinophil % 0.1 %; Hematocrit 31 % (35-47); Hemoglobin 10.3 g/dl (12.0-16.0); Lymphocyte % 9.5 %; Mean Corpuscular HGB Conc 34 g/dl (31-36); Mean Corpuscular Hemoglobin 29 pg (27-31); Mean Corpuscular Volume 86 fL (80-97); Mean Platelet Volume 7.3 fL (7.4-10.4); Nucleated Red Blood Cells % 0; Platelet Count 237 10^3/ul (150-450); Red Blood Count 3.57 10^6/ul (4.00-5.40); Red Cell Distribution Width 14 % (10.5-15)
[2018-02-16] MEDS: Morphine VIAL* 4 MG/ML VIAL (1 ml vial) IV PRN ×2 (07:30→22:23)
[2018-02-16] MEDS: Albuterol/Ipratropium NEB.SOL* Albuterol 2.5 MG/Ipratropium 0.5 MG 3 ML INH PRN (07:43)
[2018-02-16] MEDS: Atorvastatin* 10 MG TAB PO SCH (07:47)
[2018-02-16] MEDS: Sertraline* 50 MG TAB PO SCH (07:47)
[2018-02-16] MEDS: Memantine TAB* 10 MG PO SCH ×2 (07:47→21:09)
[2018-02-16 07:48] LABS: BUN/Creatinine Ratio 13.8 (8-20); Calcium 8.2 mg/dL (8.6-10.3); EGFR Non-African American 68.5 (>60); Potassium 3.7 mmol/L (3.5-5.0)
[2018-02-16] MEDS ORDERED: Bupivacaine 0.5% W/EPI SDV* 30 ML VIAL ONE (08:06)
[2018-02-16] MEDS ORDERED: EPINEPHRINE 1 MG/ML 1 ML VIAL ONE (08:06)
[2018-02-16] MEDS ORDERED: Rocuronium* 10 MG/ML VIAL ONE (08:18)
[2018-02-16] MEDS ORDERED: HYDROmorphone INJ1* 1 MG/ML SYRINGE ONE (08:18)
[2018-02-16] MEDS ORDERED: fentaNYL* 50 MCG/ML 2 ML VIAL (100 MCG VIAL) ONE (08:18)
[2018-02-16] MEDS ORDERED: KETAMINE HCL* 50 MG/ML 10 ML VIAL ONE (08:19)
[2018-02-16] MEDS ORDERED: ceFAZolin 2 GM PREMIX in ORs 2 GM/50 ML BAG IVPB ONE (08:32)
[2018-02-16] MEDS ORDERED: Lidocaine 2% PF * 5 ML VIAL ONE (09:42)
[2018-02-16] MEDS ORDERED: Propofol* 10 MG/ML 20 ML BTL ONE (09:42)
[2018-02-16] MEDS ORDERED: Ketorolac INJ* 30 MG/ML 1 ML VIAL IV PRN (09:51)
[2018-02-16] MEDS ORDERED: fentaNYL* 50 MCG/ML 2 ML VIAL (100 MCG VIAL) IV PRN (09:51)
[2018-02-16] MEDS ORDERED: PROCHLORPERAZINE INJ 5 MG/ML 2 ML VIAL IV PRN (09:51)
[2018-02-16] MEDS ORDERED: oxyCODONE/Acetamin 5/325 MG* TAB PO PRN (09:51)
[2018-02-16] MEDS ORDERED: HYDROmorphone INJ1* 1 MG/ML SYRINGE IV PRN (09:51)
[2018-02-16] MEDS ORDERED: DiMENhydriNATE IV* 50 MG/ML VIAL IV PUSH PRN (09:51)
[2018-02-16] MEDS ORDERED: Naloxone* 0.4 MG/ML 1 ML VIAL IV PRN (09:51)
[2018-02-16] MEDS ORDERED: Dexamethasone IV* 4 MG/ML 1 ML (4 MG) ONE (09:54)
[2018-02-16] MEDS ORDERED: Glycopyrrolate IV* 0.2 MG/ML 1 ML VIAL ONE ×2 (11:43→11:44)
[2018-02-16] MEDS ORDERED: Ondansetron INJ* 2 MG/ML VIAL ONE (11:43)
[2018-02-16] MEDS ORDERED: Neostigmine Methylsulfate* 2 MG/2 ML SYRINGE ONE (11:45)
--- NOTE | 2018-02-16 16:26 | PN ---
Subjective Date of Service: 02/16/18 Interval History: Patient examined in post-operative period and is still very drowsy. Unable to stay awake long enough to answer questions. No outward signs of pain. Family History: Unchanged from Admission Social History: Unchanged from Admission Past Medical History: Unchanged from Admission Objective Active Medications: Acetaminophen (Tylenol Tab*) 650 mg PO Q4H PRN PRN Reason: FEVER/PAIN Last Admin: 02/15/18 22:04 Dose: 650 mg Albuterol (Ventolin Hfa Inhaler*) 1 puff INH Q6HR PRN PRN Reason: SHORTNESS OF BREATH Albuterol/Ipratropium (Duoneb (Albuterol 2.5 Mg/Ipratropium 0.5 Mg)) 1 neb INH Q6H PRN PRN Reason: SOB/WHEEZING Last Admin: 02/16/18 07:43 Dose: 1 neb Atorvastatin Calcium (Lipitor*) 5 mg PO DAILY [facility] Last Admin: 02/16/18 07:47 Dose: Not Given Dimenhydrinate (Dramamine Iv*) 12.5 mg IV PUSH ONCE PRN PRN Reason: NAUSEA/VOMITING Docusate Sodium (Colace Cap*) 100 mg PO BID PRN PRN Reason: CONSTIPATION Fentanyl Citrate (Fentanyl*) 25 mcg IV Q2M PRN PRN Reason: PAIN - MODERATE Hydromorphone HCl (Dilaudid Inj1s*) 0.2 mg IV Q10M PRN PRN Reason: PAIN - SEVERE Ceftriaxone Sodium 1 gm/ (Sodium Chloride) 50 mls @ 200 mls/hr IVPB Q24H [facility] Last Admin: 02/16/18 02:45 Dose: 200 mls/hr Ketorolac Tromethamine (Toradol Inj*) 30 mg IV ONCE PRN PRN Reason: PAIN - MILD Memantine (Namenda Tab*) 10 mg PO BID [facility] Last Admin: 02/16/18 07:47 Dose: Not Given Morphine Sulfate (Morphine Vial*) 2 mg IV Q3H PRN PRN Reason: PAIN - MILD Last Admin: 02/16/18 07:30 Dose: 2 mg Naloxone HCl (Narcan*) 0.08 mg IV Q2M PRN PRN Reason: severe induced resp depression Ondansetron HCl (Zofran Inj*) 4 mg IV Q4H PRN PRN Reason: NAUSEA/VOMITING Oxycodone/Acetaminophen (Percocet 5/325 Tab*) 1 tab PO ONCE PRN PRN Reason: PAIN - MODERATE Prochlorperazine Edisylate (Compazine Inj*) 5 mg IV ONCE PRN PRN Reason: NAUSEA/VOMITING Senna (Senokot Tab*) 1 tab PO DAILY PRN PRN Reason: CONSTIPATION Sertraline HCl (Zoloft*) 50 mg PO DAILY [facility] Last Admin: 02/16/18 07:47 Dose: Not Given Vital Signs - 8 hr 02/16/18 02/16/18 02/16/18 12:36 12:37 12:40 Temperature 97.0 F Pulse Rate 78 75 75 Respiratory 11 13 Rate Blood Pressure 106/51 99/51 (mmHg) O2 Sat by Pulse 98 98 98 Oximetry 02/16/18 02/16/18 02/16/18 12:41 12:45 12:46 Temperature Pulse Rate 75 75 73 Respiratory 13 13 13 Rate Blood Pressure 105/47 (mmHg) O2 Sat by Pulse 98 98 98 Oximetry 02/16/18 02/16/18 02/16/18 12:50 12:51 12:55 Temperature Pulse Rate 71 73 72 Respiratory 13 19 13 Rate Blood Pressure 105/50 105/51 (mmHg) O2 Sat by Pulse 100 98 97 Oximetry 02/16/18 02/16/18 02/16/18 12:56 13:00 13:01 Temperature Pulse Rate 73 72 72 Respiratory 14 11 14 Rate Blood Pressure 105/51 (mmHg) O2 Sat by Pulse 97 97 97 Oximetry 02/16/18 02/16/18 02/16/18 13:05 13:06 13:10 Temperature Pulse Rate 71 72 72 Respiratory 14 16 14 Rate Blood Pressure 106/51 104/54 (mmHg) O2 Sat by Pulse 97 97 97 Oximetry 02/16/18 02/16/18 02/16/18 13:11 13:15 13:16 Temperature Pulse Rate 72 72 71 Respiratory 12 10 12 Rate Blood Pressure 106/51 (mmHg) O2 Sat by Pulse 97 97 97 Oximetry 02/16/18 02/16/18 02/16/18 13:20 13:21 13:25 Temperature 97.0 F Pulse Rate 72 71 72 Respiratory 11 15 15 Rate Blood Pressure 108/52 106/55 (mmHg) O2 Sat by Pulse 97 97 96 Oximetry 12/02/16/18 02/16/18 13:26 13:30 13:31 Temperature Pulse Rate 72 73 73 Respiratory 13 11 12 Rate Blood Pressure 109/51 (mmHg) O2 Sat by Pulse 96 96 96 Oximetry 02/16/18 02/16/18 02/16/18 13:35 13:36 13:40 Temperature Pulse Rate 72 72 72 Respiratory 14 13 11 Rate Blood Pressure 106/53 (mmHg) O2 Sat by Pulse 96 96 95 Oximetry 02/16/18 02/16/18 02/16/18 13:45 14:00 14:01 Temperature Pulse Rate 79 73 74 Respiratory 12 8 12 Rate Blood Pressure 116/59 104/51 (mmHg) O2 Sat by Pulse 93 93 93 Oximetry 02/16/18 02/16/18 02/16/18 14:15 14:16 14:30 Temperature Pulse Rate 77 76 Respiratory 11 15 13 Rate Blood Pressure 106/66 103/50 (mmHg) O2 Sat by Pulse 91 93 Oximetry 02/16/18 02/16/18 02/16/18 14:31 14:45 14:46 Temperature Pulse Rate 75 74 74 Respiratory 11 13 13 Rate Blood Pressure 102/51 (mmHg) O2 Sat by Pulse 93 94 94 Oximetry 02/16/18 02/16/18 02/16/18 15:00 15:01 15:15 Temperature Pulse Rate 76 75 78 Respiratory 11 11 11 Rate Blood Pressure 106/52 104/57 (mmHg) O2 Sat by Pulse 94 94 95 Oximetry 02/16/18 02/16/18 02/16/18 15:16 15:30 15:45 Temperature 98.6 F Pulse Rate 78 81 Respiratory 12 13 17 Rate Blood Pressure 103/62 108/65 (mmHg) O2 Sat by Pulse 96 93 Oximetry Oxygen Devices in Use Now: OxyMask Appearance: Patient is sitting in the bed in NAD. Unable to wake up long enough to substantially interact. Eyes: No Scleral Icterus, PERRLA Ears/Nose/Mouth/Throat: NL Teeth, Lips, Gums, Clear Oropharnyx, Mucous Membranes Moist Neck: NL Appearance and Movements; NL JVP, Trachea Midline Respiratory: - - Significant rhonchi and slight expiratory wheezes in all lung multani. Cardiovascular: NL Sounds; No Murmurs; No JVD, RRR, No Edema Abdominal: NL Sounds; No Tenderness; No Distention, No Hepatosplenomegaly Lymphatic: No Cervical Adenopathy Extremities: No Edema, No Clubbing, Cyanosis Skin: No Nodules or Sclerosis, - - Knee incision covered in bulky dressing. Neurological: - - Unable to test due to sedation. Result Diagrams: 02/16/18 07:19 02/16/18 07:19 Microbiology and Other Data: Microbiology 02/14/18 21:44 Urine Culture - Preliminary Urine Escherichia Coli 02/15/18 02:59 Aerobic Blood Culture - Preliminary Blood Venous No Growth Day 1 Anaerobic Blood Culture - Preliminary No Growth Day 1 Assess/Plan/Problems-Billing Assessment: Mrs Valerio is an 82 year old female with a H Dementia, Anxiety, Depression, HLD who presented with the ED after sustaining a mechanical fall down some stairs. Found to have a left tibial plateau fracture as well as a UTI. Started on ceftrixone. S/P ORIF. Patient has had significant worsening in respiratory status likely due to fluid overload from surgery. - Patient Problems (1) Tibial plateau fracture, left Current Visit: Yes Status: Acute Code(s): S82.142A - DISPLACED BICONDYLAR FRACTURE OF LEFT TIBIA, INIT SNOMED Code(s): 933076276 Comment: - CT with acute comminuted an impacted fractures involving the medial and lateral tibial plateaus. Large associated lipohemarthrosis - S/P ORIF of left knee fracture with Dr Michael - Pain control and Bowel regimen added. (2) Acute respiratory failure with hypoxia Current Visit: Yes Status: Acute Code(s): J96.01 - ACUTE RESPIRATORY FAILURE WITH HYPOXIA SNOMED Code(s): 38310538 Comment: - Requiring 5L O2 by oxymask. CXR consistent with worsening fluid overload. - Likely combination of Fluid overload and possible COPD exacerbation - Give Lasix and scheduled Nebs - No consolidation on CXR. - Continue Lasix as indicated. - Check Echo due to fluid overload. (3) COPD (chronic obstructive pulmonary disease) Current Visit: Yes Status: Acute Code(s): J44.9 - CHRONIC OBSTRUCTIVE PULMONARY DISEASE, UNSPECIFIED SNOMED Code(s): 13623866 Comment: - Rhonci and wheezing, will order scheduled nebulizers - Possible mild exacerbation, will not start steroids due to possible interference with wound healing. (4) Dementia Current Visit: Yes Status: Acute Code(s): F03.90 - UNSPECIFIED DEMENTIA WITHOUT BEHAVIORAL DISTURBANCE SNOMED Code(s): 30484475 Comment: - Continue memantine and supportive care (5) Hypertension Current Visit: Yes Status: Acute Code(s): I10 - ESSENTIAL (PRIMARY) HYPERTENSION SNOMED Code(s): 40103217 Comment: - Borderline hypotensive, gentle diuresis due to respiratory symptoms and fluid overload. (6) UTI (urinary tract infection) Current Visit: Yes Status: Acute Comment: - Pt with complaints of dysuria. No suprapubic pain or flank pain. - Continue ceftriaxone - Urine culture shows E coli with sensitivities pending. (7) DVT prophylaxis Current Visit: Yes Status: Acute Code(s): TEQ7233 - SNOMED Code(s): 118518405 Comment: - Resume HSQ when able. (8) Full code status Current Visit: Yes Status: Acute Code(s): Z78.9 - OTHER SPECIFIED HEALTH STATUS SNOMED Code(s): 804006080 Status and Disposition: Inpatient. Discharge when medically stable.
[2018-02-16] MEDS ORDERED: Furosemide IV* 10 MG/ML 2 ML VIAL (20 MG) IV SLOW PU ONE (16:30)
[2018-02-16] MEDS ORDERED: NS 0.9% 1000 ML* 1,000 ML IV SCH (16:45)
[2018-02-16] MEDS ORDERED: [UNRECOGNIZED DRUG - OTHER] FOLLOW UP PRN (17:56)
[2018-02-16] MEDS: Vancomycin(*) 750 MG in NS 0.9% 250 ML* 250 ML IVPB SCH (18:28)
[2018-02-16] MEDS: Acetaminophen TAB* 325 MG PO PRN (21:09)
[2018-02-17] MEDS: Acetaminophen TAB* 325 MG PO PRN ×4 (01:32→20:23)
[2018-02-17] MEDS: Morphine VIAL* 4 MG/ML VIAL (1 ml vial) IV PRN ×4 (02:55→23:59)
[2018-02-17] MEDS: cefTRIAXone(*) 1 GM in NS 0.9% 50 ML* 50 ML IVPB SCH (02:57)
[2018-02-17 05:41] LABS: ABS Basophils 0 10^3/ul (0-0.2); ABS Eosinophils 0 10^3/ul (0-0.6); ABS Lymphocytes 1.1 10^3/ul (1.0-4.8); ABS Monocytes 1.1 10^3/ul (0-0.8); ABS Neutrophils 11.9 10^3/ul (1.5-7.7); ABS Nucleated RBC 0 10^3/ul; Eosinophil % 0 %; Hematocrit 29 % (35-47); Hemoglobin 9.7 g/dl (12.0-16.0); Lymphocyte % 7.8 %; Mean Corpuscular HGB Conc 34 g/dl (31-36); Mean Corpuscular Hemoglobin 29 pg (27-31); Mean Corpuscular Volume 86 fL (80-97); Mean Platelet Volume 7.2 fL (7.4-10.4); Nucleated Red Blood Cells % 0; Platelet Count 256 10^3/ul (150-450); Red Cell Distribution Width 14 % (10.5-15); White Blood Count 14.1 10^3/ul (3.5-10.8)
[2018-02-17] MEDS: Vancomycin(*) 750 MG in NS 0.9% 250 ML* 250 ML IVPB SCH ×2 (05:49→18:42)
[2018-02-17 05:58] LABS: Calcium 8.4 mg/dL (8.6-10.3); EGFR Non-African American 73.8 (>60); Magnesium 1.7 mg/dL (1.9-2.7); Potassium 3.7 mmol/L (3.5-5.0)
[2018-02-17] MEDS ORDERED: Magnesium Sulfate IV* 3 GM in NS 0.9% 100 ML* 100 ML IVPB ONE (07:30)
--- NOTE | 2018-02-17 09:04 | PN ---
Progress Note - Progress Note Date of Service: 02/17/18 SOAP: Subjective: POD #1 Left tibial plateau fx ORIF. States that she is having a little bit of pain. Denies CP/SOB, n/v Objective: Vitals: Temp Pulse Resp BP Pulse Ox 97.9 F 90 18 117/42 90 / 07:24 02/17/18 07:24 02/17/18 07:26 02/17/18 07:24 02/17/18 07:24 Gen: A&Ox2, unsure of date today. NAD at rest sitting in bed LLE: Dressing C/D/I, YOLANDA with scant serosanguinous d/c present. + f/e at ankle and MTPs, sensation intact, DP 2+ Labs: Laboratory Results - last 24 hr 02/17/02/17/18 05:26 05:26 WBC 14.1 H RBC 3.30 L Hgb 9.7 L Hct 29 L MCV 86 MCH 29 MCHC 34 RDW 14 Plt Count 256 MPV 7.2 L Neut % (Auto) 84.1 Lymph % (Auto) 7.8 [place] % (Auto) 7.9 Eos % (Auto) 0 Baso % (Auto) 0.2 Absolute Neuts (auto) 11.9 H Absolute Lymphs (auto) 1.1 Absolute Monos (auto) 1.1 H Absolute Eos (auto) 0 Absolute Basos (auto) 0 Absolute Nucleated RBC 0 Nucleated RBC % 0 Sodium 135 Potassium 3.7 Chloride 102 Carbon Dioxide 27 Anion Gap 6 BUN 9 Creatinine 0.75 Est GFR ( Amer) 89.3 Est GFR (Non-Af Amer) 73.8 BUN/Creatinine Ratio 12.0 Glucose 100 Calcium 8.4 L Magnesium 1.7 L Assessment: POD #1 Left tibial plateau fx ORIF Plan: YOLANDA with 120cc output since yesterday, removed today without difficulty Cont PT/OT, NWB LLE with immobilizer on Lovenox for DVT ppx Vanco for 48 hours post op, dosed by pharmacy
[2018-02-17] MEDS: Atorvastatin* 10 MG TAB PO SCH (09:49)
[2018-02-17] MEDS: Memantine TAB* 10 MG PO SCH ×2 (09:49→20:23)
[2018-02-17] MEDS: Sertraline* 50 MG TAB PO SCH (09:49)
[2018-02-17] MEDS ORDERED: Furosemide IV* 10 MG/ML 2 ML VIAL (20 MG) IV SLOW PU ONE (09:59)
[2018-02-17] MEDS ORDERED: Nicotine Inhaler* 10 MG AMP INH PRN (12:00)
--- NOTE | 2018-02-17 12:10 | PN ---
Subjective Date of Service: 02/17/18 Interval History: Patient is feeling well today. Patient states the pain in her leg is minimal, but that she has pain in her pelvis which is moderate but has been there since admission. Patient states she occasionally finds it hard to breathe but generally feels OK. Patient denies CP, Abdominal pain, diarrhea, F/C, dizziness , or other pain. Patient has oxygen as needed at home and is still a very heavy smoker. Family History: Unchanged from Admission Social History: Unchanged from Admission Past Medical History: Unchanged from Admission Objective Active Medications: Acetaminophen (Tylenol Tab*) 650 mg PO Q4H PRN PRN Reason: FEVER/PAIN Last Admin: 02/17/18 09:49 Dose: 650 mg Albuterol (Ventolin Hfa Inhaler*) 1 puff INH Q6HR PRN PRN Reason: SHORTNESS OF BREATH Albuterol/Ipratropium (Duoneb (Albuterol 2.5 Mg/Ipratropium 0.5 Mg)) 1 neb INH Q6H PRN PRN Reason: SOB/WHEEZING Last Admin: 02/16/18 07:43 Dose: 1 neb Atorvastatin Calcium (Lipitor*) 5 mg PO DAILY [facility] Last Admin: 02/17/18 09:49 Dose: 5 mg Docusate Sodium (Colace Cap*) 100 mg PO BID PRN PRN Reason: CONSTIPATION Ceftriaxone Sodium 1 gm/ (Sodium Chloride) 50 mls @ 200 mls/hr IVPB Q24H [facility] Last Admin: 02/17/18 02:57 Dose: 200 mls/hr Vancomycin HCl 750 mg/ Sodium (Chloride) 250 mls @ 166.667 mls/hr IVPB Q12H [facility] Stop: 02/18/18 07:29 Last Admin: 02/17/18 05:49 Dose: 166.667 mls/hr Memantine (Namenda Tab*) 10 mg PO BID [facility] Last Admin: 02/17/18 09:49 Dose: 10 mg Morphine Sulfate (Morphine Vial*) 2 mg IV Q3H PRN PRN Reason: PAIN - MILD Last Admin: 02/17/18 07:26 Dose: 2 mg Ondansetron HCl (Zofran Inj*) 4 mg IV Q4H PRN PRN Reason: NAUSEA/VOMITING Pharmacy Consult (Vancomycin Per Provider Dosing*) 1 note FOLLOW UP . PRN PRN Reason: PER PROTOCOL Senna (Senokot Tab*) 1 tab PO DAILY PRN PRN Reason: CONSTIPATION Sertraline HCl (Zoloft*) 50 mg PO DAILY [facility] Last Admin: 02/17/18 09:49 Dose: 50 mg Vital Signs - 8 hr 02/17/18 02/17/18 02/17/18 07:05 07:24 07:26 Temperature 97.9 F Pulse Rate 90 Respiratory 16 20 18 Rate Blood Pressure 117/42 (mmHg) O2 Sat by Pulse 97 90 Oximetry 02/17/18 08:26 Temperature Pulse Rate Respiratory 16 Rate Blood Pressure (mmHg) O2 Sat by Pulse Oximetry Oxygen Devices in Use Now: Nasal Cannula Appearance: Patient is an 82yo female who appears stated age and is sitting in the bed in [facility]. Eyes: No Scleral Icterus, PERRLA Ears/Nose/Mouth/Throat: NL Teeth, Lips, Gums, Clear Oropharnyx, Mucous Membranes Moist Neck: NL Appearance and Movements; NL JVP, Trachea Midline Respiratory: Symmetrical Chest Expansion and Respiratory Effort, - - Diminished , no adventious lung sounds. Cardiovascular: NL Sounds; No Murmurs; No JVD, RRR, - - Trace LE edema. Trace occular edema. Abdominal: NL Sounds; No Tenderness; No Distention, No Hepatosplenomegaly Lymphatic: No Cervical Adenopathy Extremities: No Clubbing, Cyanosis, - - Left Knee in bulky dressing and immobilizer. Skin: No Rash or Ulcers, No Nodules or Sclerosis Neurological: Alert and Oriented x 3, NL Sensation, NL Muscle Strength and Tone , - - CN II-XII intact. Result Diagrams: 02/17/18 05:26 02/17/18 05:26 Microbiology and Other Data: Microbiology 02/14/18 21:44 Urine Culture - Preliminary Urine Escherichia Coli 02/15/18 02:59 Aerobic Blood Culture - Preliminary Blood Venous No Growth Day 1 Anaerobic Blood Culture - Preliminary No Growth Day 1 Assess/Plan/Problems-Billing Assessment: Mrs Valerio is an 82 year old female with a H Dementia, Anxiety, Depression, HLD who presented with the ED after sustaining a mechanical fall down some stairs. Found to have a left tibial plateau fracture as well as a UTI. Started on ceftrixone. S/P ORIF. Patient has had significant worsening in respiratory status likely due to fluid overload from surgery. - Patient Problems (1) Tibial plateau fracture, left Current Visit: Yes Status: Acute Code(s): S82.142A - DISPLACED BICONDYLAR FRACTURE OF LEFT TIBIA, INIT SNOMED Code(s): 766932350 Comment: - CT with acute comminuted an impacted fractures involving the medial and lateral tibial plateaus. Large associated lipohemarthrosis - S/P ORIF of left knee fracture with Dr Michael - Pain control and Bowel regimen added. (2) Acute respiratory failure with hypoxia Current Visit: Yes Status: Acute Code(s): J96.01 - ACUTE RESPIRATORY FAILURE WITH HYPOXIA SNOMED Code(s): 48490550 Comment: - Requiring 4L O2 by nasal cannula. CXR consistent with fluid overload. - Likely combination of Fluid overload and possible COPD exacerbation - Lung exam improved today and weaning O2. - Give another dose lasix. Cancel nebs due to resolved wheezing. - No consolidation on CXR. - Check Echo due to fluid overload. (3) COPD (chronic obstructive pulmonary disease) Current Visit: Yes Status: Acute Code(s): J44.9 - CHRONIC OBSTRUCTIVE PULMONARY DISEASE, UNSPECIFIED SNOMED Code(s): 09419666 Comment: - Rhonci and wheezing resolved. Now Nebs PRN - Possible mild exacerbation, will not start steroids due to possible interference with wound healing. - Possible natural progression of chronic respiratory failure, will need outpatient PFTs. (4) Dementia Current Visit: Yes Status: Acute Code(s): F03.90 - UNSPECIFIED DEMENTIA WITHOUT BEHAVIORAL DISTURBANCE SNOMED Code(s): 55355906 Comment: - Continue memantine and supportive care (5) Hypertension Current Visit: Yes Status: Acute Code(s): I10 - ESSENTIAL (PRIMARY) HYPERTENSION SNOMED Code(s): 65448376 Comment: - Borderline hypotensive, gentle diuresis due to respiratory symptoms and fluid overload. (6) UTI (urinary tract infection) Current Visit: Yes Status: Acute Comment: - Continue ceftriaxone - Urine culture shows E coli with sensitivities pending. - Carrion in place, remove this afternoon. (7) DVT prophylaxis Current Visit: Yes Status: Acute Code(s): HWX6166 - SNOMED Code(s): 822924580 Comment: - Lovenox per ortho. (8) Full code status Current Visit: Yes Status: Acute Code(s): Z78.9 - OTHER SPECIFIED HEALTH STATUS SNOMED Code(s): 425765467 Status and Disposition: Inpatient. Discharge when medically stable. Will likely need rehab.
[2018-02-17] MEDS: Nicotine PATCH 21 MG/24 HR* PATCH TRANSDERM SCH (13:58)
--- NOTE | 2018-02-17 15:13 | ECHO ---
Patient: GELACIO FELTON [facility] Rec#: [id number] : 1935 Date: 02/17/2018 Age: 82y Height: 155 cm / 61.0 in Weight: 49 kg / 108.0 lbs Sex: F BSA: 1.45 Room#: 336 Admit Date#: 02/14/2018 Type: Inpatient Referring: Stephen Chin Reading: Christofer Skinner MD [facility] Intern: Micki Kaur RN RDCS Transthoracic Echocardiogram Indication: Shortness of breath BP: 111/48 HR: 79 Rhythm: NSR Findings History: HLD, smoker, dementia, S/P ORIF for tibial plateau fracture Technical Comments: The study is technically limited due to the patient's smoking history. The study was technically limited due to the patient's inability to lay in the left lateral decubitus position. Left Ventricle: The left ventricular chamber size is decreased. There is increased basal septal hypertrophy noted without evidence of an increased gradient across the left ventricular outflow tract. Global left ventricular wall motion and contractility are within normal limits. There is normal left ventricular systolic function. The estimated ejection fraction is 60-65%. Abnormal left ventricular diastolic filling is observed, consistent with impaired relaxation. Left Atrium: The left atrial chamber size is normal. Right Ventricle: The right ventricle is not well visualized. The right ventricle is mildly dilated. The right ventricular global systolic function is mildly reduced. Right Atrium: The right atrium is not well visualized. Aortic Valve: The aortic valve structure is not well visualized. The aortic valve leaflets are mildly thickened. There is no evidence of aortic regurgitation. There is no evidence of aortic stenosis. Mitral Valve: There is trace to mild mitral regurgitation. There is no evidence of mitral stenosis. Tricuspid Valve: The tricuspid valve structure is not well visualized. There is trace tricuspid regurgitation. Unable to estimate the right ventricular systolic pressure. There is no tricuspid stenosis. Pulmonic Valve: The pulmonic valve structure is not well visualized. Pericardium: There is no significant pericardial effusion. Aorta: There is no dilatation of the ascending aorta. There is no dilatation of the aortic arch. There is no dilation of the aortic root. Pulmonary Artery: The main pulmonary artery is not well visualized. Venous: The inferior vena cava appears normal in size. There is a greater than 50% respiratory change in the inferior vena cava dimension. Conclusions The study is technically limited due to the patient's smoking history. The left ventricular chamber size is decreased. Global left ventricular wall motion and contractility are within normal limits. The estimated ejection fraction is 60-65%. Abnormal left ventricular diastolic filling is observed, consistent with impaired relaxation. The right ventricle is mildly dilated. The right ventricular global systolic function is mildly reduced. There is trace to mild mitral regurgitation. There is trace tricuspid regurgitation. Compared to 11/2010, the RV hypokinesis and dilatation is newly reported. Consider cor pulmonale. Measurements Name Value Normal Range RAd ISD 4CH 4.2 cm (3.4 - 4.9) IVSd (2D) 0.9 cm (0.6 - 1) LVPWd (2D) 0.8 cm (0.6 - 1) LVIDd (2D) 2.6 cm (3.6 - 5.4) LVIDs (2D) 1.6 cm - LV FS (2D) 38 % (25 - 45) Aortic Annulus 1.8 cm (1.4 - 2.6) Ao root diameter (2D) 2.8 cm (2.1 - 3.5) Ascending Ao 2.3 cm (2.1 - 3.4) Aortic arch 2 cm (1.8 - 3.4) LA dimension (AP) 2D 2.3 cm (2.3 - 3.8) LAd ISD 4CH 4.4 cm (2.9 - 5.3) LA ISD 4CH W 3 cm (2.5 - 4.5) Name Value Normal Range LA ESV BP (A/L) index 17.1 ml/m2 - Name Value Normal Range MV E-wave Vmax 0.97 m/sec - MV deceleration time 208 msec - MV A-wave Vmax 1 m/sec - MV E:A ratio 1 ratio - LV septal e' Vmax 0.07 m/sec - LV lateral e' Vmax 0.1 m/sec - LV E:e' septal ratio 13.9 ratio - LV E:e' lateral ratio 9.7 ratio - Name Value Normal Range AV Vmax 1.3 m/sec - AV VTI 26 cm - AV peak gradient 7 mmHg - AV mean gradient 4 mmHg - LVOT Vmax 1 m/sec - LVOT VTI 19.8 cm - LVOT peak gradient 4 mmHg - LVOT mean gradient 2 mmHg - TARIQ Vmax 0.59 m/sec - Name Value Normal Range IVC diameter 0.8 cm - Name Value Normal Range PV Vmax 0.75 m/sec -
[2018-02-17] MEDS ORDERED: Mouth Piece, Nicotine* 1 EACH CARTRIDGE ONE (16:56)
[2018-02-17] MEDS: Nicotine Patch Removal NOTE FOLLOW UP SCH (21:59)
[2018-02-17] MEDS ORDERED: LORazepam INJ* 2 MG/ML 1 ML VIAL IV PUSH ONE (23:09)
[2018-02-18] MEDS: Nicotine Patch Removal NOTE FOLLOW UP SCH ×2 (00:47→20:32)
--- NOTE | 2018-02-18 00:53 | PN ---
Progress Note - Progress Note Date of Service: 02/18/18 Note: More aggressive overnight. Hypoxic reportedly to 70s off oxygen after removing. Received 0.5mg IV ativan with improvement and replacement of 3 L NC and resultant oxygen saturation to 97% Tearing telemetry leads off. Tele discontinued in effort to remove external devices and combat delerium. Assess for continued need during daytime.
--- NOTE | 2018-02-18 01:48 | OP ---
DATE OF OPERATION: 02/16/18 - ROOM #336 DATE OF : 33 SURGEON: Tyson Michael MD SEISMIC PROSPECTING OBSERVER HELPER: SHARON rGegory. A physician botany laboratory assistant was required for the length of the procedure for assistance with the patient positioning, retraction , instrumentation, and closure. ANESTHESIOLOGIST: Clifford Malhotra MD ANESTHESIA: General anesthesia, local anesthesia with approximately 20 cc of Marcaine with epinephrine. PRE-OP DIAGNOSIS: Left tibial plateau fracture, bicondylar, medial and lateral , displaced. POST-OP DIAGNOSIS: Left tibial plateau fracture, bicondylar, medial and lateral , displaced. OPERATIVE PROCEDURE: 1. Open reduction and internal fixation, left tibial plateau fracture, bicondylar, medial and lateral plateaus with 2 separate incisions and plates. 2. Left knee lateral meniscocapsular repair and left knee medial hamstring repair, they were both done in the course of doing the above-mentioned open reduction and internal fixation left bicondylar tibial plateau fracture. Lateral sub-meniscal arthrotomy also performed in the context of this open reduction and internal fixation procedure. IV FLUIDS: 2000 cc crystalloid. ANTIBIOTICS: 2 g Ancef IV. SPECIMEN: None. IMPLANTS: Synthes 3.5 mm left lateral tibial plateau locking plate, 4 hole, short bend. Synthes left medial tibial plateau fracture 3.5 mm locking plate, 4 hole. One double-loaded Mitek Gryphon suture anchor. Three 5.0 wire #2 sutures. One YOLANDA drain was placed laterally. COMPLICATIONS: None. ESTIMATED BLOOD LOSS: Minimal. TOURNIQUET TIME: 120 minutes at 250 mmHg. IBAW-FR-MAJY TIME: 155 minutes. INDICATIONS FOR PROCEDURE: The patient is an 82-year-old woman who ambulated without assist prior to injury, who lives with her and who has some element of dementia, but engages in many activities of daily living such as cooking, cleaning, some socializing, who sustained a mechanical fall at the house of a daughter of hers on 02/14/18 and was [place] [facility] [place] was [place] with a displaced left tibial plateau fracture. My partner, Dr. Ferrera, was called about the patient. The next day, 02/15/18, I learned of the patient and performed a consultation. There is a consult note in the computer, both by SHARON Barry as well as by myself. CT scan and x-ray demonstrated a displaced bicondylar left lateral tibial plateau fracture. I described it as a Schatzker grade 5. The patient also had a urinary tract infection diagnosed by the hospitalist service and was admitted on the hospitalist service. I spoke in some detail with multiple family members including the patient, about the pros and cons of nonoperative and operative treatment for this fracture. I spoke about the patient's activity level, her smoking, a multitude of possible complications with surgery including wound healing and infection, and the limits on weightbearing and activity that she would have with or without surgery for some period of time. Ultimately, both the family and I felt that surgery would be the best move for a variety of reasons. Therefore, we decided to move forward with surgery. Due to the availability of implants, this procedure was not done on 02/15/18 and instead was done on 02/16/18. Overnight, we elevated the patient's left lower extremity and iced it such that she still did not have severe soft tissue swelling on the morning of surgery. She had excellent wrinkling of the skin about the knee. I discussed risks and possible complications with the patient's daughters and . DESCRIPTION OF PROCEDURE: In preoperative holding, the patient's daughter who is her healthcare proxy as well as her current , both signed her surgical consent. Operative extremity was marked in preoperative holding. The patient was taken back to the operating room and then placed supine on the operating table. The patient was sedated and intubated. Placed a tourniquet about the left proximal thigh. I placed bone foam under the left lower extremity. The left lower extremity was prepped with chlorhexidine and ChloraPrep and then draped. Surgical time-out was performed. Esmarch was applied and the tourniquet was elevated to either 250 or 300 mmHg. I believe it was 250 mmHg. I made a classic oblique lateral approach to lateral tibial plateau fracture in the skin with a knife. I dissected down with scissors to the lateral fascia. I marked and then made my incision in this fascia, from the fascia overlying the anterior compartment distally to a split in the iliotibial band proximally. I released those tissues anterior and posterior. All anterior compartment musculature was taken posteriorly with Sue. There was no split visible about the lateral tibial plateau. I decided to make an arthrotomy in the lateral compartment. I made a sub- meniscal lateral compartment arthrotomy to aid in visualization of the articular cartilage and the subchondral bone in the lateral compartment. Visualizing within the lateral compartment, with traction manipulation on the lower extremity, the step-off was greater than 2 mm but did not look 1 cm. There were some loose fragments of articular cartilage of bone from about the central aspect of the lateral compartment that I removed with a small rongeur. This was after I irrigated well the knee joint to improve visualization. I considered creating a bone window to improve the reduction with tamping-up method. However, given her age and osteopenia, this did not seem worthwhile. Primarily, I was placing plates to maintain and prevent worsening of current reduction, although there certainly was improvement of reduction with just traction and manual manipulation, as evidenced with C-arm images, multiple, taken at this stage of the procedure. I placed several plates on the lateral tibia. The short bend sit better than the large bend. I applied that and it looked like it would fit nicely. I next came up with the tibial plateau reduced with manual manipulation, I placed 3 K-wires across the tibial plateau. This held reduction. I next placed my lateral tibial plateau plate. I held it in place with nonlocking screws, one placed proximal and the other distal. I then maintained it in place with one locking screw proximal and one distal. Satisfied with the position of the plate laterally and with my lateral reduction according to C- arm imaging, I next moved to the medial side of the knee. Made a classic medial approach to the medial tibial plateau. Dissected down through soft tissues. Respected saphenous neurovascular bundle. Identified hamstring tendons, gracilis and semitendinosus. Released these off of the anterior tibia and placed a tagging stitch. Identified superficial MCL and respected it. Performed some additional manual manipulation of bone to improve reduction. Placed medial plate and K-wire. I adjusted the position of the medial plate in the proximal distal direction several times. Once I liked the position, I placed locking screws, proximal and distal. We next filled the medial and lateral plates with locking screws, proximal and distal. All provisional K-wires were removed. The prior nonlocking screws on the lateral side were changed to locking screws. I liked my reduction radiographically on both AP, oblique and lateral images. No bone window had been opened, so no bone graft was required. Looking through my subcondylar arthrotomy laterally, reduction was not anatomic but was nearly anatomic within several millimeters. Irrigation of both wounds. In the lateral wound, a YOLANDA drain was placed deep to the anterior compartment of the lower leg fascia. The lateral fascia was closed along the length of the incision with multiple [id number] and then running stitches using Ethibond #1 suture. The subcutaneous tissue was then closed with buried simple stitches using Vicryl 2.0 suture. Skin was closed with carlito. I should state that prior to the fascial repair, I performed an arthrotomy repair. I did this using 3 FiberWire #2 stitches that had been placed through the proximal- most aspect of the lateral tibial locking plate. Each was used to place a stitch into lateral meniscus and lateral capsule, simple stitches. On the medial side, I repaired the semitendinosus and gracilis tendons just anterior to the medial locking plate to bone using a Mitek Gryphon anchor and horizontal mattress stitches with the double-loaded suture from that anchor. I closed subcutaneous tissue with buried simple stitches using Vicryl 2.0 suture. I closed the skin with carlito. Approximately 20 cc of Marcaine with epinephrine was injected into the subcutaneous tissues about both skin incisions. Xeroform, 4x4s, sterile Webril , Mikey bandage from foot to proximal thigh. Cooling unit, knee immobilizer. The patient was awakened and extubated and brought to the PACU. DISPOSITION: The patient was readmitted postoperatively to the hospitalist service. She will be toe-touch weightbearing for transfers, otherwise nonweightbearing. Physical therapy will work with her. She is to receive Lovenox 40 mg subcutaneous daily x4 weeks postoperatively. Antibiotics were initially written as Ancef 2 g IV q.8 hours x48 hours postoperative, but pharmacy requested that we switch this to vancomycin as the patient was already on ceftriaxone for her urinary tract infection. Defer to hospitalist service for medical management. Drain will be removed on postoperative day 1 or 2 and first dressing change will be done on postoperative day 3. I will see the patient in clinic approximately postoperative day 14 for a wound check and likely removal of carlito. The patient will likely require rehabilitation stay given her limited her weightbearing and the fact that she lives with an 84-year- old . [id number]/[facility] #: [id number] [facility]
[2018-02-18] MEDS: cefTRIAXone(*) 1 GM in NS 0.9% 50 ML* 50 ML IVPB SCH (02:52)
[2018-02-18 05:40] LABS: ABS Basophils 0.1 10^3/ul (0-0.2); ABS Eosinophils 0 10^3/ul (0-0.6); ABS Lymphocytes 0.8 10^3/ul (1.0-4.8); ABS Monocytes 0.7 10^3/ul (0-0.8); ABS Neutrophils 10.3 10^3/ul (1.5-7.7); ABS Nucleated RBC 0 10^3/ul; Eosinophil % 0.2 %; Hematocrit 28 % (35-47); Hemoglobin 9.4 g/dl (12.0-16.0); Lymphocyte % 6.8 %; Mean Corpuscular HGB Conc 34 g/dl (31-36); Mean Corpuscular Hemoglobin 29 pg (27-31); Mean Corpuscular Volume 85 fL (80-97); Mean Platelet Volume 7.6 fL (7.4-10.4); Nucleated Red Blood Cells % 0; Platelet Count 271 10^3/ul (150-450); Red Blood Count 3.23 10^6/ul (4.00-5.40); Red Cell Distribution Width 14 % (10.5-15); White Blood Count 11.9 10^3/ul (3.5-10.8)
[2018-02-18 05:58] LABS: BUN/Creatinine Ratio 11.4 (8-20); EGFR Non-African American 69.5 (>60)
[2018-02-18] MEDS: Vancomycin(*) 750 MG in NS 0.9% 250 ML* 250 ML IVPB SCH (06:02)
[2018-02-18] MEDS: Senna TAB PO PRN (07:45)
[2018-02-18] MEDS: Memantine TAB* 10 MG PO SCH ×2 (07:45→20:32)
[2018-02-18] MEDS: Docusate CAP* 100 MG PO PRN (07:46)
[2018-02-18] MEDS: Sertraline* 50 MG TAB PO SCH (07:46)
[2018-02-18] MEDS: Acetaminophen TAB* 325 MG PO PRN ×2 (07:46→20:31)
[2018-02-18] MEDS: Nicotine PATCH 21 MG/24 HR* PATCH TRANSDERM SCH (07:46)
[2018-02-18] MEDS: Atorvastatin* 10 MG TAB PO SCH (07:46)
[2018-02-18] MEDS: Potassium Chlor TAB* 20 MEQ TAB.ER PO SCH ×2 (07:46→20:32)
[2018-02-18] MEDS: Albuterol/Ipratropium NEB.SOL* Albuterol 2.5 MG/Ipratropium 0.5 MG 3 ML INH PRN (10:09)
[2018-02-18] MEDS: Morphine VIAL* 4 MG/ML VIAL (1 ml vial) IV PRN (10:09)
--- NOTE | 2018-02-18 10:33 | PN ---
Progress Note - Progress Note Date of Service: 02/18/18 SOAP: Subjective: []Patient seen and examined at bedside. She feels well without pain of her LLE, she has no complaints today. Denies CP, dizziness, nausea. She is not short of breath but expresses her breathing as "fair". Objective: []General: Well appearing, NAD LLE: Dressing CDI, immobilizer appropriately in place, DF/PF at ankle intact, flexion and extension at MTPs intact, sensation intact and capillary refill less than two seconds distally. RLE calf supple and nontender without erythema, edema or palpable cords Assessment: [] POD #2 Left tibial plateau fx ORIF Plan: Cont PT/OT, NWB LLE with immobilizer on, TTWB for transfers only Lovenox 40 mg sq qd for DVT ppx Ceftriaxone for UTI First dressing change will be 02/19 POD 3. Anticipate allowing patient Passive ROM at the knee with PT tomorrow as long as swelling is not severe Vital Signs Temp 98.3 F 02/18/18 11:17 Pulse 80 02/18/18 11:17 Resp 20 02/18/18 11:21 BP 111/40 02/18/18 11:17 Pulse Ox 97 02/18/18 11:17 Intake & Output 02/17/18 02/18/18 02/18/18 18:59 06:59 18:59 Intake Total 530 482 300 Output Total 1500 0 125 Balance -970 482 175 Weight 120 lb 9.6 oz Intake: IV Fluids 20 NS (0.9%) 20 IVPB 292 ABX - VANCOMYCIN 292 Oral 530 170 300 Output: Urine 0 125 Carrion 1500 Laboratory Last Values WBC 11.9 10^3/ul (3.5-10.8) H 02/18/18 05:24 RBC 3.23 10^6/ul (4.00-5.40) L 02/18/18 05:24 Hgb 9.4 g/dl (12.0-16.0) L 02/18/18 05:24 Hct 28 % (35-47) L 02/18/18 05:24 MCV 85 fL (80-97) 02/18/18 05:24 MCH 29 pg (27-31) 02/18/18 05:24 MCHC 34 g/dl (31-36) 02/18/18 05:24 RDW 14 % (10.5-15) 02/18/18 05:24 Plt Count 271 10^3/ul (150-450) 02/18/18 05:24 MPV 7.6 fL (7.4-10.4) 02/18/18 05:24 Neut % (Auto) 86.1 % 02/18/18 05:24 Lymph % (Auto) 6.8 % 02/18/18 05:24 Mcminn % (Auto) 6.3 % 02/18/18 05:24 Eos % (Auto) 0.2 % 02/18/18 05:24 Baso % (Auto) 0.6 % 02/18/18 05:24 Absolute Neuts (auto) 10.3 10^3/ul (1.5-7.7) H 02/18/18 05:24 Absolute Lymphs (auto) 0.8 10^3/ul (1.0-4.8) L 02/18/18 05:24 Absolute Monos (auto) 0.7 10^3/ul (0-0.8) 02/18/18 05:24 Absolute Eos (auto) 0 10^3/ul (0-0.6) 02/18/18 05:24 Absolute Basos (auto) 0.1 10^3/ul (0-0.2) 02/18/18 05:24 Absolute Nucleated RBC 0 10^3/ul 02/18/18 05:24 Nucleated RBC % 0 02/18/18 05:24 INR (Anticoag Therapy) 0.87 (0.77-1.02) 02/15/18 04:50 Sodium 136 mmol/L (135-145) 02/18/18 05:24 Potassium 3.0 mmol/L (3.5-5.0) L 02/18/18 05:24 Chloride 101 mmol/L (101-111) 02/18/18 05:24 Carbon Dioxide 29 mmol/L (22-32) 02/18/18 05:24 Anion Gap 6 mmol/L (2-11) 02/18/18 05:24 BUN 9 mg/dL (6-24) 02/18/18 05:24 Creatinine 0.79 mg/dL (0.51-0.95) 02/18/18 05:24 Est GFR ( Amer) 84.1 (>60) 02/18/18 05:24 Est GFR (Non-Af Amer) 69.5 (>60) 02/18/18 05:24 BUN/Creatinine Ratio 11.4 (8-20) 02/18/18 05:24 Glucose 147 mg/dL (70-100) H 02/18/18 05:24 Calcium 8.0 mg/dL (8.6-10.3) L 02/18/18 05:24 Magnesium 2.0 mg/dL (1.9-2.7) 02/18/18 05:24 Total Bilirubin 0.40 mg/dL (0.2-1.0) 02/14/18 18:05 AST 16 U/L (13-39) 02/14/18 18:05 ALT 9 U/L (7-52) 02/14/18 18:05 Alkaline Phosphatase 100 U/L (34-104) 02/14/18 18:05 Troponin I 0.00 ng/mL (<0.04) 02/15/18 02:59 C-Reactive Protein 3.21 mg/L (<8.01) 02/14/18 18:05 Total Protein 6.0 g/dL (6.4-8.9) L 02/14/18 18:05 Albumin 3.7 g/dL (3.2-5.2) 02/14/18 18:05 Globulin 2.3 g/dL (2-4) 02/14/18 18:05 Albumin/Globulin Ratio 1.6 (1-3) 02/14/18 18:05 Urine Color Yellow 02/14/18 21:44 Urine Appearance Cloudy 02/14/18 21:44 Urine pH 5.0 (5-9) 02/14/18 21:44 Ur Specific Ulen 1.014 (1.010-1.030) 02/14/18 21:44 Urine Protein Negative (Negative) 02/14/18 21:44 Urine Ketones Trace (Negative) A 02/14/18 21:44 Urine Blood Negative (Negative) 02/14/18 21:44 Urine Nitrate Positive (Negative) A 02/14/18 21:44 Urine Bilirubin Negative (Negative) 02/14/18 21:44 Urine Urobilinogen Negative (Negative) 02/14/18 21:44 Ur Leukocyte Esterase 2+ (Negative) A 02/14/18 21:44 Urine WBC (Auto) 3+(>20/hpf) (Absent) A 02/14/18 21:44 Urine RBC (Auto) Absent (Absent) 02/14/18 21:44 Ur Squamous Epith Cells Present (Absent) A 02/14/18 21:44 Urine Bacteria 1+ (Absent) A 02/14/18 21:44 Urine Glucose Negative (Negative) 02/14/18 21:44 Blood Type O Positive 02/16/18 07:19 Antibody Screen Negative 02/16/18 07:19
[2018-02-18] MEDS ORDERED: Spiriva Inhaler DEVICE* 1 EACH DEVICE SCH (11:00)
[2018-02-18] MEDS ORDERED: Spiriva Inhaler DEVICE* 1 EACH DEVICE INH SCH (11:00)
[2018-02-18] MEDS: Enoxaparin(*) 40 MG/0.4 ML SYR SUBCUT SCH (11:18)
[2018-02-18] MEDS: Tiotropium CAP.INH* CAP.INH/18 MCG (USE ORDER SET !) INH SCH (11:18)
--- NOTE | 2018-02-18 14:31 | PN ---
Subjective Date of Service: 02/18/18 Interval History: Patient is in good spirits. When questioned about her overnight confusion and agitation, she states "that happens to people my age." Patient states her pain is minimal, but her daughter states that she is likely understating her pain. Patient states that she has been having difficulty breathing intermittently for a long time. Patient denies CP, SOB, N/V, abdominal pain, diarrhea. Patient has not yet urinated since her mccann was removed and does not feel as if she needs to go. Family History: Unchanged from Admission Social History: Unchanged from Admission Past Medical History: Unchanged from Admission Objective Active Medications: Acetaminophen (Tylenol Tab*) 650 mg PO Q4H PRN PRN Reason: FEVER/PAIN Last Admin: 02/18/18 07:46 Dose: 650 mg Albuterol (Ventolin Hfa Inhaler*) 1 puff INH Q6HR PRN PRN Reason: SHORTNESS OF BREATH Albuterol/Ipratropium (Duoneb (Albuterol 2.5 Mg/Ipratropium 0.5 Mg)) 1 neb INH Q6H PRN PRN Reason: SOB/WHEEZING Last Admin: 02/18/18 10:09 Dose: 1 neb Atorvastatin Calcium (Lipitor*) 5 mg PO DAILY [facility] Last Admin: 02/18/18 07:46 Dose: 5 mg Device (Tiotropium Inhaler Device*) 1 each INH .USE w/ SPIRIVA CAPS MOI Docusate Sodium (Colace Cap*) 100 mg PO BID PRN PRN Reason: CONSTIPATION Last Admin: 02/18/18 07:46 Dose: 100 mg Enoxaparin Sodium (Lovenox(*)) 40 mg SUBCUT Q24H [facility] Last Admin: 02/18/18 11:18 Dose: 40 mg Ceftriaxone Sodium 1 gm/ (Sodium Chloride) 50 mls @ 200 mls/hr IVPB Q24H [facility] Last Admin: 02/18/18 02:52 Dose: 200 mls/hr Memantine (Namenda Tab*) 10 mg PO BID [facility] Last Admin: 02/18/18 07:45 Dose: 10 mg Morphine Sulfate (Morphine Vial*) 2 mg IV Q3H PRN PRN Reason: PAIN - MILD Last Admin: 02/18/18 10:09 Dose: 2 mg Nicotine (Nicotine Inhaler*) 10 mg INH Q2H PRN PRN Reason: CRAVING Last Admin: 02/17/18 16:57 Dose: 10 mg Nicotine (Nicotine Patch 21 Mg/24 Hr*) 1 patch TRANSDERM DAILY [facility] Last Admin: 02/18/18 07:46 Dose: 1 patch Ondansetron HCl (Zofran Inj*) 4 mg IV Q4H PRN PRN Reason: NAUSEA/VOMITING Oxycodone HCl (Roxycodone Tab*) 5 mg PO Q6H PRN PRN Reason: PAIN Pharmacy Consult (Vancomycin Per Provider Dosing*) 1 note FOLLOW UP . PRN PRN Reason: PER PROTOCOL Stop: 02/18/18 23:59 Pharmacy Profile Note (Nicotine Patch Removal Note*) 1 note FOLLOW UP 2100 [facility] Last Admin: 02/18/18 00:47 Dose: 1 note Potassium Chloride (Klor Con Er Tab*) 20 meq PO BID [facility] Stop: 02/18/18 21:01 Last Admin: 02/18/18 07:46 Dose: 20 meq Senna (Senokot Tab*) 1 tab PO DAILY PRN PRN Reason: CONSTIPATION Last Admin: 02/18/18 07:45 Dose: 1 tab Sertraline HCl (Zoloft*) 50 mg PO DAILY [facility] Last Admin: 02/18/18 07:46 Dose: 50 mg Tiotropium Wall (Spiriva Cap.Inh*) 1 cap INH DAILY [facility] Last Admin: 02/18/18 11:18 Dose: 1 cap Vital Signs - 8 hr 02/18/18 02/18/18 02/18/18 07:28 07:39 08:00 Temperature 100.0 F 99.8 F Pulse Rate 82 Respiratory 18 18 Rate Blood Pressure 129/53 (mmHg) O2 Sat by Pulse 96 96 Oximetry 02/18/18 02/18/18 02/18/18 10:09 11:17 11:21 Temperature 98.3 F Pulse Rate 80 Respiratory 18 20 20 Rate Blood Pressure 111/40 (mmHg) O2 Sat by Pulse 97 Oximetry Oxygen Devices in Use Now: Nasal Cannula Appearance: Patient is an 82yo female who appears stated age and is sitting in the chair in NAD. Eyes: No Scleral Icterus, PERRLA Ears/Nose/Mouth/Throat: NL Teeth, Lips, Gums, Clear Oropharnyx, Mucous Membranes Moist Neck: NL Appearance and Movements; NL JVP, Trachea Midline Respiratory: Symmetrical Chest Expansion and Respiratory Effort, - - Diminished , expiratory wheezing throughout. Cardiovascular: NL Sounds; No Murmurs; No JVD, RRR, No Edema Abdominal: NL Sounds; No Tenderness; No Distention, No Hepatosplenomegaly Lymphatic: No Cervical Adenopathy Extremities: No Edema, No Clubbing, Cyanosis Skin: No Nodules or Sclerosis, - - Left knee immobilized and covered in bulky dressing. Good pulse and sensation distally. Neurological: NL Sensation, NL Muscle Strength and Tone, - - CN II-XII intact. Intermittently confused. Result Diagrams: 02/18/18 05:24 02/18/18 05:24 Microbiology and Other Data: Microbiology 02/14/18 21:44 Urine Culture - Preliminary Urine Escherichia Coli 02/15/18 02:59 Aerobic Blood Culture - Preliminary Blood Venous No Growth Day 1 Anaerobic Blood Culture - Preliminary No Growth Day 1 Assess/Plan/Problems-Billing Assessment: Mrs Valerio is an 82 year old female with a H Dementia, Anxiety, Depression, HLD who presented with the ED after sustaining a mechanical fall down some stairs. Found to have a left tibial plateau fracture as well as a UTI. Started on ceftrixone. S/P ORIF. Patient has had significant worsening in respiratory status likely due to fluid overload from surgery. - Patient Problems (1) Tibial plateau fracture, left Current Visit: Yes Status: Acute Code(s): S82.142A - DISPLACED BICONDYLAR FRACTURE OF LEFT TIBIA, INIT SNOMED Code(s): 075538806 Comment: - CT with acute comminuted an impacted fractures involving the medial and lateral tibial plateaus. Large associated lipohemarthrosis - S/P ORIF of left knee fracture with Dr Michael - Pain control and Bowel regimen added. - Non-weight bearing - Will need rehab. (2) Acute respiratory failure with hypoxia Current Visit: Yes Status: Acute Code(s): J96.01 - ACUTE RESPIRATORY FAILURE WITH HYPOXIA SNOMED Code(s): 53123117 Comment: - Requiring 3L O2 by nasal cannula and saturating well. CXR consistent with fluid overload. - Likely combination of Fluid overload and possible COPD exacerbation - Lung exam shows wheezing today. Continue nebs. - S/P 2 doses lasix and appears euvolemic. Echo shows diastolic dysfunction. - No consolidation on CXR. (3) COPD (chronic obstructive pulmonary disease) Current Visit: Yes Status: Acute Code(s): J44.9 - CHRONIC OBSTRUCTIVE PULMONARY DISEASE, UNSPECIFIED SNOMED Code(s): 96482127 Comment: - Rhonci and wheezing - PRN Nebs and start Spiriva - Possible mild exacerbation, will not start steroids due to possible interference with wound healing. - Possible natural progression of chronic respiratory failure, will need outpatient PFTs. - Will likely need to be discharge on O2. (4) Dementia Current Visit: Yes Status: Acute Code(s): F03.90 - UNSPECIFIED DEMENTIA WITHOUT BEHAVIORAL DISTURBANCE SNOMED Code(s): 64077711 Comment: - Continue memantine and supportive care (5) Hypertension Current Visit: Yes Status: Acute Code(s): I10 - ESSENTIAL (PRIMARY) HYPERTENSION SNOMED Code(s): 03897845 Comment: - Normotensive. (6) UTI (urinary tract infection) Current Visit: Yes Status: Acute Comment: - Continue ceftriaxone - Urine culture shows Pansensitive E. Coli. - Mccann removed, awaiting void. (7) DVT prophylaxis Current Visit: Yes Status: Acute Code(s): [id number] - SNOMED Code(s): 033115538 Comment: - Lovenox per ortho. (8) Full code status Current Visit: Yes Status: Acute Code(s): Z78.9 - OTHER SPECIFIED HEALTH STATUS SNOMED Code(s): 714533229 Status and Disposition: Inpatient. Discharge when medically stable. Will need rehab.
[2018-02-18] MEDS: oxyCODONE TAB* 5 MG TAB PO PRN (18:20)
[2018-02-19] MEDS: cefTRIAXone(*) 1 GM in NS 0.9% 50 ML* 50 ML IVPB SCH (03:25)
[2018-02-19 05:49] LABS: ABS Basophils 0 10^3/ul (0-0.2); ABS Eosinophils 0.3 10^3/ul (0-0.6); ABS Lymphocytes 1.2 10^3/ul (1.0-4.8); ABS Monocytes 0.6 10^3/ul (0-0.8); ABS Nucleated RBC 0 10^3/ul; Eosinophil % 2.8 %; Hematocrit 27 % (35-47); Hemoglobin 9.1 g/dl (12.0-16.0); Lymphocyte % 12.8 %; Mean Corpuscular HGB Conc 34 g/dl (31-36); Mean Corpuscular Hemoglobin 29 pg (27-31); Mean Corpuscular Volume 85 fL (80-97); Mean Platelet Volume 7.7 fL (7.4-10.4); Nucleated Red Blood Cells % 0; Platelet Count 284 10^3/ul (150-450); Red Blood Count 3.12 10^6/ul (4.00-5.40); Red Cell Distribution Width 14 % (10.5-15); White Blood Count 9.1 10^3/ul (3.5-10.8)
[2018-02-19 06:06] LABS: BUN/Creatinine Ratio 11.5 (8-20); Calcium 8.1 mg/dL (8.6-10.3); EGFR Non-African American 93.7 (>60); Magnesium 1.9 mg/dL (1.9-2.7); Potassium 3.5 mmol/L (3.5-5.0)
[2018-02-19] MEDS: Tiotropium CAP.INH* CAP.INH/18 MCG (USE ORDER SET !) INH SCH (07:23)
--- NOTE | 2018-02-19 09:20 | PN ---
Progress Note - Progress Note Date of Service: 02/19/18 SOAP: Subjective: []Patient was seen and examined at bedside today. She states her LLE is more painful today than it was yesterday, denies any chest pain, shortness of breath , dizziness or nausea. Objective: []General: NAD, carries on a seemingly appropriate conversation though the events discussed are not correct. She does not remember that her dressing was changed minutes after it was completed. Reports a very bloody dressing, when there was no blood on dressing change. LLE: Immobilizer appropriately in place. Dressing changed, incision was CDI with well approximated wound edges and no erythema. Foot with 1+ edema. Limited though intact DF/PF at ankle, flexion and extension at MTPs intact, sensation intact and capillary refill less than two seconds distally. DP2+. BL calves are supple and nontender without erythema, edema or palpable cords Assessment: [] POD #3 Left tibial plateau fx ORIF Plan: Cont PT/OT, NWB LLE with immobilizer on, TTWB for transfers only May start Passive ROM at the knee with PT Lovenox 40 mg sq qd for DVT ppx for 4 weeks post op Dry sterile dressing change every other day Ceftriaxone for UTI Vital Signs Temp 98.7 F 02/19/18 07:06 Pulse 77 02/19/18 07:06 Resp 16 02/19/18 07:06 BP 120/46 02/19/18 07:06 Pulse Ox 96 02/19/18 07:06 Intake & Output 02/18/18 02/19/18 02/19/18 18:59 06:59 18:59 Intake Total 300 250 Output Total 1475 600 Balance -1175 -350 Weight 120 lb 9.6 oz Intake: Oral 300 250 Output: Urine 175 [place] 650 600 Residual 650 16 Fr 650 Laboratory Last Values WBC 9.1 10^3/ul (3.5-10.8) 02/19/18 05:28 RBC 3.12 10^6/ul (4.00-5.40) L 02/19/18 05:28 Hgb 9.1 g/dl (12.0-16.0) L 02/19/18 05:28 Hct 27 % (35-47) L 02/19/18 05:28 MCV 85 fL (80-97) 02/19/18 05:28 MCH 29 pg (27-31) 02/19/18 05:28 MCHC 34 g/dl (31-36) 02/19/18 05:28 RDW 14 % (10.5-15) 02/19/18 05:28 Plt Count 284 10^3/ul (150-450) 02/19/18 05:28 MPV 7.7 fL (7.4-10.4) 02/19/18 05:28 Neut % (Auto) 77.0 % 02/19/18 05:28 Lymph % (Auto) 12.8 % 02/19/18 05:28 [place] % (Auto) 7.0 % 02/19/18 05:28 Eos % (Auto) 2.8 % 02/19/18 05:28 Baso % (Auto) 0.4 % 02/19/18 05:28 Absolute Neuts (auto) 7.0 10^3/ul (1.5-7.7) 02/19/18 05:28 Absolute Lymphs (auto) 1.2 10^3/ul (1.0-4.8) 02/19/18 05:28 Absolute Monos (auto) 0.6 10^3/ul (0-0.8) 02/19/18 05:28 Absolute Eos (auto) 0.3 10^3/ul (0-0.6) 02/19/18 05:28 Absolute Basos (auto) 0 10^3/ul (0-0.2) 02/19/18 05:28 Absolute Nucleated RBC 0 10^3/ul 02/19/18 05:28 Nucleated RBC % 0 02/19/18 05:28 INR (Anticoag Therapy) 0.87 (0.77-1.02) 02/15/18 04:50 Sodium 137 mmol/L (135-145) 02/19/18 05:28 Potassium 3.5 mmol/L (3.5-5.0) 02/19/18 05:28 Chloride 104 mmol/L (101-111) 02/19/18 05:28 Carbon Dioxide 29 mmol/L (22-32) 02/19/18 05:28 Anion Gap 4 mmol/L (2-11) 02/19/18 05:28 BUN 7 mg/dL (6-24) 02/19/18 05:28 Creatinine 0.61 mg/dL (0.51-0.95) 02/19/18 05:28 Est GFR ( Amer) 113.3 (>60) 02/19/18 05:28 Est GFR (Non-Af Amer) 93.7 (>60) 02/19/18 05:28 BUN/Creatinine Ratio 11.5 (8-20) 02/19/18 05:28 Glucose 104 mg/dL (70-100) H 02/19/18 05:28 Calcium 8.1 mg/dL (8.6-10.3) L 02/19/18 05:28 Magnesium 1.9 mg/dL (1.9-2.7) 02/19/18 05:28 Total Bilirubin 0.40 mg/dL (0.2-1.0) 02/14/18 18:05 AST 16 U/L (13-39) 02/14/18 18:05 ALT 9 U/L (7-52) 02/14/18 18:05 Alkaline Phosphatase 100 U/L (34-104) 02/14/18 18:05 Troponin I 0.00 ng/mL (<0.04) 02/15/18 02:59 C-Reactive Protein 3.21 mg/L (<8.01) 02/14/18 18:05 Total Protein 6.0 g/dL (6.4-8.9) L 02/14/18 18:05 Albumin 3.7 g/dL (3.2-5.2) 02/14/18 18:05 Globulin 2.3 g/dL (2-4) 02/14/18 18:05 Albumin/Globulin Ratio 1.6 (1-3) 02/14/18 18:05 Urine Color Yellow 02/14/18 21:44 Urine Appearance Cloudy 02/14/18 21:44 Urine pH 5.0 (5-9) 02/14/18 21:44 Ur Specific [place] 1.014 (1.010-1.030) 02/14/18 21:44 Urine Protein Negative (Negative) 02/14/18 21:44 Urine Ketones Trace (Negative) A 02/14/18 21:44 Urine Blood Negative (Negative) 02/14/18 21:44 Urine Nitrate Positive (Negative) A 02/14/18 21:44 Urine Bilirubin Negative (Negative) 02/14/18 21:44 Urine Urobilinogen Negative (Negative) 02/14/18 21:44 Ur Leukocyte Esterase 2+ (Negative) A 02/14/18 21:44 Urine WBC (Auto) 3+(>20/hpf) (Absent) A 02/14/18 21:44 Urine RBC (Auto) Absent (Absent) 02/14/18 21:44 Ur Squamous Epith Cells Present (Absent) A 02/14/18 21:44 Urine Bacteria 1+ (Absent) A 02/14/18 21:44 Urine Glucose Negative (Negative) 02/14/18 21:44 Blood Type O Positive 02/16/18 07:19 Antibody Screen Negative 02/16/18 07:19
[2018-02-19] MEDS: Sertraline* 50 MG TAB PO SCH (09:49)
[2018-02-19] MEDS: Senna TAB PO PRN (09:49)
[2018-02-19] MEDS: Atorvastatin* 10 MG TAB PO SCH (09:49)
[2018-02-19] MEDS: Memantine TAB* 10 MG PO SCH ×2 (09:50→22:12)
[2018-02-19] MEDS: oxyCODONE TAB* 5 MG TAB PO PRN (09:50)
[2018-02-19] MEDS: Docusate CAP* 100 MG PO PRN (09:50)
[2018-02-19] MEDS: Nicotine PATCH 21 MG/24 HR* PATCH TRANSDERM SCH (09:52)
[2018-02-19] MEDS: Enoxaparin(*) 40 MG/0.4 ML SYR SUBCUT SCH (10:55)
[2018-02-19] MEDS: Acetaminophen TAB* 325 MG PO SCH ×3 (10:55→22:12)
--- NOTE | 2018-02-19 16:27 | PN ---
Subjective Date of Service: 02/19/18 Interval History: Resting in bed on assessment Reports pain to left upper leg. Denies numbness/tingling, cp, sob, n/v/d, headache, dizziness. Patient is answering questions appropriately. Nursing reports she can be confused at times. Family History: Unchanged from Admission Social History: Unchanged from Admission Past Medical History: Unchanged from Admission Objective Active Medications: Acetaminophen (Tylenol Tab*) 650 mg PO Q6H [facility] Stop: 02/21/18 09:59 Last Admin: 02/19/18 16:02 Dose: 650 mg Albuterol (Ventolin Hfa Inhaler*) 1 puff INH Q6HR PRN PRN Reason: SHORTNESS OF BREATH Albuterol/Ipratropium (Duoneb (Albuterol 2.5 Mg/Ipratropium 0.5 Mg)) 1 neb INH Q6H PRN PRN Reason: SOB/WHEEZING Last Admin: 02/18/18 10:09 Dose: 1 neb Atorvastatin Calcium (Lipitor*) 5 mg PO DAILY [facility] Last Admin: 02/19/18 09:49 Dose: 5 mg Device (Tiotropium Inhaler Device*) 1 each INH .USE w/ SPIRIVA CAPS [facility] Docusate Sodium (Colace Cap*) 100 mg PO BID PRN PRN Reason: CONSTIPATION Last Admin: 02/19/18 09:50 Dose: 100 mg Enoxaparin Sodium (Lovenox(*)) 40 mg SUBCUT Q24H [facility] Last Admin: 02/19/18 10:55 Dose: 40 mg Ceftriaxone Sodium 1 gm/ (Sodium Chloride) 50 mls @ 200 mls/hr IVPB Q24H [facility] Last Admin: 02/19/18 03:25 Dose: 200 mls/hr Memantine (Namenda Tab*) 10 mg PO BID [facility] Last Admin: 02/19/18 09:50 Dose: 10 mg Morphine Sulfate (Morphine Vial*) 2 mg IV Q3H PRN PRN Reason: PAIN - MILD Last Admin: 02/18/18 10:09 Dose: 2 mg Nicotine (Nicotine Inhaler*) 10 mg INH Q2H PRN PRN Reason: CRAVING Last Admin: 02/17/18 16:57 Dose: 10 mg Nicotine (Nicotine Patch 21 Mg/24 Hr*) 1 patch TRANSDERM DAILY [facility] Last Admin: 02/19/18 09:52 Dose: 1 patch Ondansetron HCl (Zofran Inj*) 4 mg IV Q4H PRN PRN Reason: NAUSEA/VOMITING Oxycodone HCl (Roxycodone Tab*) 5 mg PO Q6H PRN PRN Reason: PAIN Last Admin: 02/19/18 09:50 Dose: 5 mg Pharmacy Profile Note (Nicotine Patch Removal Note*) 1 note FOLLOW UP 2100 [facility] Last Admin: 02/18/18 20:32 Dose: 1 note Senna (Senokot Tab*) 1 tab PO DAILY PRN PRN Reason: CONSTIPATION Last Admin: 02/19/18 09:49 Dose: 1 tab Sertraline HCl (Zoloft*) 50 mg PO DAILY [facility] Last Admin: 02/19/18 09:49 Dose: 50 mg Tiotropium [place] (Spiriva Cap.Inh*) 1 cap INH DAILY [facility] Last Admin: 02/19/18 07:23 Dose: 1 cap Vital Signs - 8 hr 02/19/18 02/19/18 02/19/18 09:00 09:50 11:21 Temperature 99.0 F Pulse Rate 79 Respiratory 18 18 16 Rate Blood Pressure 117/51 (mmHg) O2 Sat by Pulse 96 99 Oximetry 02/19/18 02/19/18 02/19/18 12:41 15:08 15:19 Temperature 98.0 F Pulse Rate 73 Respiratory 16 16 Rate Blood Pressure 95/47 102/50 (mmHg) O2 Sat by Pulse 100 Oximetry 02/19/18 16:00 Temperature Pulse Rate Respiratory Rate Blood Pressure (mmHg) O2 Sat by Pulse 100 Oximetry Oxygen Devices in Use Now: Nasal Cannula Appearance: Cooperative, NAD Eyes: PERRLA Ears/Nose/Mouth/Throat: Clear Oropharnyx, Mucous Membranes Moist Neck: NL Appearance and Movements; NL JVP Respiratory: Symmetrical Chest Expansion and Respiratory Effort, Clear to Auscultation Cardiovascular: NL Sounds; No Murmurs; No JVD, RRR, No Edema Abdominal: NL Sounds; No Tenderness; No Distention Lymphatic: No Cervical Adenopathy Extremities: No Edema, No Clubbing, Cyanosis, - - Dressing to LLE CDI Skin: No Rash or Ulcers Neurological: Alert and Oriented x 3 Result Diagrams: 02/19/18 05:28 02/19/18 05:28 Additional Lab and Data: Laboratory Results - last 24 hr 02/19/18 02/19/18 05:28 05:28 WBC 9.1 RBC 3.12 L Hgb 9.1 L Hct 27 L MCV 85 MCH 29 MCHC 34 RDW 14 Plt Count 284 MPV 7.7 Neut % (Auto) 77.0 Lymph % (Auto) 12.8 [place] % (Auto) 7.0 Eos % (Auto) 2.8 Baso % (Auto) 0.4 Absolute Neuts (auto) 7.0 Absolute Lymphs (auto) 1.2 Absolute Monos (auto) 0.6 Absolute Eos (auto) 0.3 Absolute Basos (auto) 0 Absolute Nucleated RBC 0 Nucleated RBC % 0 Sodium 137 Potassium 3.5 Chloride 104 Carbon Dioxide 29 Anion Gap 4 BUN 7 Creatinine 0.61 Est GFR ( Amer) 113.3 Est GFR (Non-Af Amer) 93.7 BUN/Creatinine Ratio 11.5 Glucose 104 H Calcium 8.1 L Magnesium 1.9 Microbiology and Other Data: Microbiology 02/15/18 02:59 Blood Venous Aerobic Blood Culture - Preliminary No Growth Day 4 02/15/18 02:59 Blood Venous Anaerobic Blood Culture - Preliminary No Growth Day 4 02/14/18 21:44 Urine Urine Culture - Final Escherichia Coli Assess/Plan/Problems-Billing Assessment: Mrs Valerio is an 82 year old female with a [facility] Dementia, Anxiety, Depression, HLD who presented with the ED after sustaining a mechanical fall down some stairs. Found to have a left tibial plateau fracture as well as a UTI. Started on ceftrixone. S/P ORIF. Patient has had significant worsening in respiratory status likely due to fluid overload from surgery. - Patient Problems (1) Tibial plateau fracture, left Comment: - POD 3 ORIF of left tibial plateau fracture with Dr Michael - Reported pain in left leg this morning. Tylenol changed to scheduled in attempted to better control pain. - Non-weight bearing - Rehab/[facility]. (2) Acute respiratory failure with hypoxia Comment: - Requiring 2.5L O2 by nasal cannula and saturating well. - Attempt weaning. - Likely combination of fluid overload and possible COPD exacerbation which is resolving - Lung exam normal today. - Continue nebs as needed - Patient received 2 doses lasix on 02/16 and 02/17. - Cont daily weights and I&Os (3) COPD (chronic obstructive pulmonary disease) Current Visit: Yes Status: Acute Code(s): J44.9 - CHRONIC OBSTRUCTIVE PULMONARY DISEASE, UNSPECIFIED SNOMED Code(s): 29940358 Comment: - Ls clear today - PRN Nebs and continue Spiriva - Possibly had mild exacerbation - Possible natural progression of chronic respiratory failure, will need outpatient PFTs. - Will likely need to be discharge on O2. Will attempt weaning of possible (4) Dementia Comment: - Continue memantine and supportive care (5) Hypertension Comment: - Normotensive. (6) UTI (urinary tract infection) Comment: - Continue ceftriaxone. D/C tomorrow after dose as she will have completed 6 days. - Urine culture shows Pansensitive E. Coli. - Mccann had to be replaced due to retention. - May need to be discharged with mccann. (7) DVT prophylaxis Comment: - Lovenox per ortho. (8) Full code status Comment: - Full Code Status and Disposition: Inpatient. Discharge when medically stable to [facility] Attending: Tere Lazo
[2018-02-19] MEDS: Nicotine Patch Removal NOTE FOLLOW UP SCH (22:15)
[2018-02-20] MEDS: Docusate CAP* 100 MG PO PRN (04:14)
[2018-02-20] MEDS: Acetaminophen TAB* 325 MG PO SCH ×2 (04:14→10:43)
[2018-02-20] MEDS: cefTRIAXone(*) 1 GM in NS 0.9% 50 ML* 50 ML IVPB SCH (04:20)
[2018-02-20] MEDS: Atorvastatin* 10 MG TAB PO SCH (08:08)
[2018-02-20] MEDS: Senna TAB PO PRN (08:08)
[2018-02-20] MEDS: Sertraline* 50 MG TAB PO SCH (08:08)
[2018-02-20] MEDS: Nicotine PATCH 21 MG/24 HR* PATCH TRANSDERM SCH (08:08)
[2018-02-20] MEDS: Memantine TAB* 10 MG PO SCH (08:08)
[2018-02-20] MEDS ORDERED: Magnesium Hydroxide LIQ* 30 ML UDC PO ONE (10:33)
[2018-02-20] MEDS: Enoxaparin(*) 40 MG/0.4 ML SYR SUBCUT SCH (10:44)
[2018-02-20] MEDS: Tiotropium CAP.INH* CAP.INH/18 MCG (USE ORDER SET !) INH SCH (10:44)
[2018-02-20 11:39] VITALS: BP 124/56
--- NOTE | 2018-02-20 12:42 | PN ---
Progress Note - Progress Note Date of Service: 02/20/18 SOAP: Subjective: []Patient was seen and examined at bedside today. Her pain control is improved from yesterday. She denies any chest pain, shortness of breath, dizziness, nausea. Objective: []General: NAD, able to tolerate dressing change much better than yesterday. LLE: Immobilizer appropriately in place. Dressing changed, incision was CDI with well approximated wound edges and no erythema. Knee ROM less than 15 degrees due to pain. Foot still with 1+ edema. Limited though intact DF/PF at ankle, flexion and extension at MTPs intact, sensation intact and capillary refill less than two seconds distally. DP2+. Has a pea sized skin tear mid lateral calf with small amount of dried serous discharge on the dressing without any surrounding erythema, tenderness or purulence. BL calves are supple and nontender without erythema, edema or palpable cords Assessment: [] POD #4 Left tibial plateau fx ORIF Plan: Cont PT/OT, NWB LLE with immobilizer on, TTWB for transfers only May continue Passive ROM at the knee with PT Lovenox 40 mg sq qd for DVT ppx for 4 weeks post op Dry sterile dressing change every other day Follow up with Dr Michael 14 days post op Vital Signs Temp 98.5 F 02/20/18 11:38 Pulse 68 02/20/18 11:38 Resp 16 02/20/18 11:38 BP 124/56 02/20/18 11:38 Pulse Ox 98 02/20/18 11:38 Intake & Output 02/19/18 02/20/18 02/20/18 18:59 06:59 18:59 Intake Total 210 646 540 Output Total 2075 Balance 210 -1429 540 Intake: IVPB 46 ABX - CEFTRIAXONE 46 Oral 210 600 540 Output: [place] 2074 Laboratory Last Values WBC 9.1 10^3/ul (3.5-10.8) 02/19/18 05:28 RBC 3.12 10^6/ul (4.00-5.40) L 02/19/18 05:28 Hgb 9.1 g/dl (12.0-16.0) L 02/19/18 05:28 Hct 27 % (35-47) L 02/19/18 05:28 MCV 85 fL (80-97) 02/19/18 05:28 MCH 29 pg (27-31) 02/19/18 05:28 MCHC 34 g/dl (31-36) 02/19/18 05:28 RDW 14 % (10.5-15) 02/19/18 05:28 Plt Count 284 10^3/ul (150-450) 02/19/18 05:28 MPV 7.7 fL (7.4-10.4) 02/19/18 05:28 Neut % (Auto) 77.0 % 02/19/18 05:28 Lymph % (Auto) 12.8 % 02/19/18 05:28 [place] % (Auto) 7.0 % 02/19/18 05:28 Eos % (Auto) 2.8 % 02/19/18 05:28 Baso % (Auto) 0.4 % 02/19/18 05:28 Absolute Neuts (auto) 7.0 10^3/ul (1.5-7.7) 02/19/18 05:28 Absolute Lymphs (auto) 1.2 10^3/ul (1.0-4.8) 02/19/18 05:28 Absolute Monos (auto) 0.6 10^3/ul (0-0.8) 02/19/18 05:28 Absolute Eos (auto) 0.3 10^3/ul (0-0.6) 02/19/18 05:28 Absolute Basos (auto) 0 10^3/ul (0-0.2) 02/19/18 05:28 Absolute Nucleated RBC 0 10^3/ul 02/19/18 05:28 Nucleated RBC % 0 02/19/18 05:28 INR (Anticoag Therapy) 0.87 (0.77-1.02) 02/15/18 04:50 Sodium 137 mmol/L (135-145) 02/19/18 05:28 Potassium 3.5 mmol/L (3.5-5.0) 02/19/18 05:28 Chloride 104 mmol/L (101-111) 02/19/18 05:28 Carbon Dioxide 29 mmol/L (22-32) 02/19/18 05:28 Anion Gap 4 mmol/L (2-11) 02/19/18 05:28 BUN 7 mg/dL (6-24) 02/19/18 05:28 Creatinine 0.61 mg/dL (0.51-0.95) 02/19/18 05:28 Est GFR ( Amer) 113.3 (>60) 02/19/18 05:28 Est GFR (Non-Af Amer) 93.7 (>60) 02/19/18 05:28 BUN/Creatinine Ratio 11.5 (8-20) 02/19/18 05:28 Glucose 104 mg/dL (70-100) H 02/19/18 05:28 Calcium 8.1 mg/dL (8.6-10.3) L 02/19/18 05:28 Magnesium 1.9 mg/dL (1.9-2.7) 02/19/18 05:28 Total Bilirubin 0.40 mg/dL (0.2-1.0) 02/14/18 18:05 AST 16 U/L (13-39) 02/14/18 18:05 ALT 9 U/L (7-52) 02/14/18 18:05 Alkaline Phosphatase 100 U/L (34-104) 02/14/18 18:05 Troponin I 0.00 ng/mL (<0.04) 02/15/18 02:59 C-Reactive Protein 3.21 mg/L (<8.01) 02/14/18 18:05 Total Protein 6.0 g/dL (6.4-8.9) L 02/14/18 18:05 Albumin 3.7 g/dL (3.2-5.2) 02/14/18 18:05 Globulin 2.3 g/dL (2-4) 02/14/18 18:05 Albumin/Globulin Ratio 1.6 (1-3) 02/14/18 18:05 Urine Color Yellow 02/14/18 21:44 Urine Appearance Cloudy 02/14/18 21:44 Urine pH 5.0 (5-9) 02/14/18 21:44 Ur Specific [place] 1.014 (1.010-1.030) 02/14/18 21:44 Urine Protein Negative (Negative) 02/14/18 21:44 Urine Ketones Trace (Negative) A 02/14/18 21:44 Urine Blood Negative (Negative) 02/14/18 21:44 Urine Nitrate Positive (Negative) A 02/14/18 21:44 Urine Bilirubin Negative (Negative) 02/14/18 21:44 Urine Urobilinogen Negative (Negative) 02/14/18 21:44 Ur Leukocyte Esterase 2+ (Negative) A 02/14/18 21:44 Urine WBC (Auto) 3+(>20/hpf) (Absent) A 02/14/18 21:44 Urine RBC (Auto) Absent (Absent) 02/14/18 21:44 Ur Squamous Epith Cells Present (Absent) A 02/14/18 21:44 Urine Bacteria 1+ (Absent) A 02/14/18 21:44 Urine Glucose Negative (Negative) 02/14/18 21:44 Blood Type O Positive 02/16/18 07:19 Antibody Screen Negative 02/16/18 07:19
--- NOTE | 2018-02-20 13:39 | DS ---
AMENDED REPORT NOW INCLUDES DESIGNATED COSIGNER CC: Dr. Michael* DISCHARGE SUMMARY: DATE OF ADMISSION: 02/14/18 DATE OF DISCHARGE: 02/20/18 PRIMARY CARE PROVIDER: Unknown. ATTENDING PHYSICIAN: Dr. Lazo * (dictated by Zehra Costa NP) PRIMARY DIAGNOSES: 1. Status post left tibial plateau fracture, open reduction and internal fixation. 2. Fall. 3. Urinary tract infection. 4. Urinary retention. 5. Hypoxia. SECONDARY DIAGNOSES: 1. Hypertension. 2. Chronic obstructive pulmonary disease. 3. Hyperlipidemia. 4. Dementia. 5. Anxiety. CONSULTATIONS WHILE IN THE HOSPITAL: Dr. Michael, orthopedist. PROCEDURES WHILE IN THE HOSPITAL: Left tibial plateau ORIF. STUDIES WHILE IN THE HOSPITAL: 1. Left femur x-ray: Impression: Lateral subluxation of the tibia relative to the distal femur and impacted fracture of the medial and lateral tibial plateau. 2. Knee x-ray, left: Impression: Lateral subluxation of the tibia relative to the distal femur. Impacted fracture of the medial and lateral tibial plateau. 3. Jonathan CT: Impression: No acute intracranial pathology. 4. Pelvis CT: Impression: Normally aligned left hip hemiarthroplasty with no adjacent fractures. No additional findings to correlate patient's symptomatology. Distal colonic diverticulosis. 5. Chest x-ray: Impression: The constellation of findings is most consistent with mild pulmonary vascular congestion and interstitial edema. 6. EKG: Impression: Sinus rhythm. 7. Left ankle x-ray: Impression: Osteopenia. No acute osseous injury. 8. Transthoracic echo: Impression: This study is limited due to patient's smoking history. Left ventricular chamber size has decreased. Global left ventricular wall motion and contractility are within normal limits. Estimated ejection fraction is 60% to 65%. Abnormal left ventricular diastolic filling is observed, consistent with impaired relaxation. Right ventricle is mildly dilated. Right ventricle global systolic function is mildly reduced. Trace to mild mitral regurgitation. Trace tricuspid regurgitation. DISCHARGE HOME MEDICATIONS: New home medications: 1. Senna 1 tab p.o. daily p.r.n. 2. Oxycodone 5 mg p.o. q.6 hours p.r.n. 3. Lovenox 40 mg subcu q.24 hours. 4. Colace 100 mg p.o. b.i.d. p.r.n. 5. Spiriva 1 cap inhalation daily. 6. Tylenol 650 mg p.o. q.6 hours p.r.n. Continued home medications: 1. Albuterol 1 puff inhalation q.6 hours p.r.n. 2. Simvastatin 10 mg p.o. daily. 3. Zoloft 50 mg p.o. daily. 4. Namenda 10 mg p.o. b.i.d. Discontinued home medications: No home medications discontinued. HISTORY OF PRESENT ILLNESS/HOSPITAL COURSE: Ms. Valerio is an 82-year-old female with a past medical history of hypertension, COPD, hyperlipidemia, dementia, anxiety; who presented to the emergency department on 02/14/18 after sustaining a fall. Please see history and physical dictated by Sierra Javier NP for complete summary of the events leading up to this hospitalization, but in short, patient arrived to the emergency department via ambulance with the left knee pain after mechanical fall downstairs. The patient had difficulty recalling the events leading up to the fall due to her baseline dementia. While in the emergency department, the patient did have x- rays and was found to have left tibial plateau fracture, therefore the patient was admitted for further evaluation and treatment. During this hospital stay, Orthopedics were consulted. The patient underwent left tibial plateau fracture ORIF on 02/16/18. Her hospitalization was complicated due to acute respiratory failure with hypoxia after surgery. The patient required 5 L oxygen by OxyMask. The patient's chest x-ray was consistent with worsening fluid overload. It was suspected that the patient's hypoxia with a combination of fluid overload and possible COPD exacerbation due to patient's smoking history. The patient was given Lasix and DuoNebs and has responded well. Today, the patient's lung sounds are clear to auscultation. There are no rhonchi, rales, or wheezing. The patient is breathing with ease. The patient is still requiring 1 to 2 L nasal cannula as she is 88% on room air. I suspect the patient is continuing need for supplement of oxygen is due to her previous episodes of fluid overload and COPD exacerbation in addition to limited mobility. I suspect the patient will be able to be successfully weaned off of oxygen when she is up and walking. In addition, while in the emergency department, urine was obtained and there was concern for urinary tract infection, therefore she was started on ceftriaxone. The patient received 6 days of ceftriaxone, therefore she does not need any further antibiotics. It should be noted that she remained afebrile. Finally, the patient's hospitalization was further complicated as patient had a Mccann catheter after her surgery and when the mccann catheter was removed the patient was noted to retain in urine. Therefore, Mccann was replaced. I would suggest that the Mccann catheter is removed and void challenged completed as soon as possible once patient is more mobile. Ms. Kristen Valerio is stable for discharge to [facility]. Vital signs as follows: Temp 98.2, pulse 66, RR 18, O2 91% on 1 L, BP 122/50. REVIEW OF SYSTEMS: The patient denies pain, chest pain, shortness of breath, nausea, vomiting, diarrhea, headache, dizziness, weakness. A 12-point review of systems completed and all negative. PHYSICAL EXAM: General: Ms. Valerio is a well-developed, elderly female, sitting in bed, in no acute distress. Appears stated age. HEENT: PERRLA. EOMs intact. Sclerae without icterus. Oral mucous membranes are moist without lesion. Neck: Full range of motion. Supple. Respiratory: Symmetrical chest expansion. No accessory muscle use. Lung sounds are clear to auscultation. No rhonchi, wheezing, or rubs. CV: Regular rate and rhythm. S1/S2 present. No murmurs, rubs or gallops. No JVD. Extremities: Skin is warm and smooth bilaterally. Trace edema to the left lower extremity. No clubbing or cyanosis. Pedal pulses 2+ bilaterally. Musculoskeletal: No pain or deformities. Dressing to left lower extremity clean, dry, and intact. Brace intact. Abdomen: Soft, nontender to palpation. Bowel sounds x4. Neuro: Awake, alert, oriented x1. Skin: Grossly intact without lesions. DISCHARGE PLAN/FOLLOWUP: 1. Left tibial plateau fracture postop day #4. Per ortho team, the patient needs to continue PT/OT. The patient is nonweightbearing to left lower extremity with immobilizer on. Toe touch weightbearing for transfers only. May start passive range of motion at knee with PT. The patient should continue Lovenox 40 mg subcu daily for DVT prophylaxis for 4 weeks postop. Dry sterile dressing change every other day. Dressing was changed today 02/20/18. Patient should follow up with Dr Michael in 14 days for post op day. 2. Fall: Due to the patient's dementia, she is a high fall risk, therefore she should be monitored closely. She should continue PT and OT. 3. UTI: As previously mentioned, the patient was treated on ceftriaxone for 6 days. She does not need further antibiotics at this point. I would continue to monitor the patient for signs and symptoms of urinary tract infection and evaluate her accordingly. 4. Urinary retention. As previously mentioned, the patient had Mccann for surgery. When Mccann was removed, the patient was noted to be retaining urine. Mccann was then replaced. I would suggest removing Mccann tomorrow 02/21/18 in attempt to void challenge patient. I believe the patient is retaining urine due to immobility and narcotics. Therefore, she should be void challenged tomorrow again. If urinary retention continues, she may need urology followup. 5. Hypoxia: As previously mentioned, the patient was hypoxic postoperatively, requiring 5 L of nasal cannula. The patient is improving as she is only needing 1 L nasal cannula. The patient was successfully diuresed and successfully treated with nebulizers. I suspect that this hypoxia was multifactorial due to COPD and pulmonary edema. The patient should continue on Spiriva inhaler for COPD. The patient should continue to be monitored for reaccumulation of fluid. The patient should be weaned off of oxygen when she is up and mobile. Therefore, wean as tolerated. 6. Hypertension: The patient has been normotensive while hospitalized and does not require medications and was not on home medications. Continue to monitor and adjust as needed. 7. COPD. As previously mentioned, the patient had a mild exacerbation. We have added Spiriva daily to her regimen. She should continue to use Ventolin inhaler as needed. The patient would benefit from further evaluation of COPD as needed. 8. Dementia: The patient should be monitored closely as she is a high fall risk, she is alert to self only. Her son is at the bedside and reports this is her baseline. Continue Namenda 10 mg p.o. b.i.d. 9. Anxiety: The patient with frequent symptoms of anxiety during this hospital stay. The patient will benefit from continuing her Zoloft 50 mg p.o. daily. This is a summarized report of a complex medical history and hospital stay. For further details, please see the entire medical record. This plan was reviewed with my attending, Dr. Lazo, who agrees with my plan. TIME SPENT: Approximately 45 minutes was spent on this discharge, greater than half that time was spent [id number] with the patient discussing discharge plans and instructions. ZEHRA COSTA, BOZENA [id number]/[facility] #: [id number] CLARISA
== END 2018-02-20 14:50 | DRG 492 ==
LOC: ED 17:06 → SSU 21:08
PROVIDERS: ADMIT Internal Medicine; ATTEND Internal Medicine
PROC: 0QSH04Z Reposition Left Tibia with Internal Fixation Device, Open Approach (ICD-10-PCS; principal; 2018-02-16 08:30)
DX: S82.142A Displaced bicondylar fracture of left tibia, initial encounter for closed fracture (principal); J96.21 Acute and chronic respiratory failure with hypoxia; F05 Delirium due to known physiological condition; J44.1 Chronic obstructive pulmonary disease with (acute) exacerbation; N39.0 Urinary tract infection, site not specified; J81.1 Chronic pulmonary edema; R33.9 Retention of urine, unspecified; E87.70 Fluid overload, unspecified; E78.00 Pure hypercholesterolemia, unspecified; E89.0 Postprocedural hypothyroidism; Z96.642 Presence of left artificial hip joint; F17.210 Nicotine dependence, cigarettes, uncomplicated; I10 Essential (primary) hypertension; E78.5 Hyperlipidemia, unspecified; F03.90 Unspecified dementia, unspecified severity, without behavioral disturbance, psychotic disturbance, mood disturbance, and anxiety; F41.9 Anxiety disorder, unspecified; W10.9XXA Fall (on) (from) unspecified stairs and steps, initial encounter; B96.20 Unspecified Escherichia coli [E. coli] as the cause of diseases classified elsewhere; K57.30 Diverticulosis of large intestine without perforation or abscess without bleeding; M85.88 Other specified disorders of bone density and structure, other site; I08.1 Rheumatic disorders of both mitral and tricuspid valves; Y92.009 Unspecified place in unspecified non-institutional (private) residence as the place of occurrence of the external cause
CPT/HCPCS: 36415; 70450; 71045; 72192; 76000; 80048; 80053; 81003; 81015; 83735; 84484; 85025; 85610; 86140; 86850; 86900; 86901; 87040; 87077; 87086; 87186; 93005; 93306; 94640; 99284; A9270-GY; G8978-GP-CM; G8979-GP-CI; G8987-GO-CM; G8988-GO-CK; J0690; J0696; J1100; J1170; J1644; J1650; J1940; J2060; J2270; J2405; J2704; J3010; J3370; J3475

== ENCOUNTER 2018-06-26 16:20 | Emergency (ER) | payer MEDICARE ==
--- NOTE | 2018-06-26 19:53 | ED ---
Lower Extremity - HPI Summary HPI Summary: Patient complains of swelling and redness to left lower extremity starting this morning. Denies pain. She ambulatory. States swelling and redness have improved since this morning. Patient has history of knee surgery in March 2018 for tibial plateau fracture. X-ray of left knee 05/09/18 normal. Patient concerned about possible blood clot. No anti-coagulation. Denies fever, cough , sore throat, CP, SOB, N/V/V abdominal pain, change in urine, change in BM, calf tenderness, history of blood clots, history of long travel, history of recent trauma, history of cancer. - History of Current Complaint Chief Complaint: EDExtremityLower Stated Complaint: KNEE SURGERY 03/23, SWELLING AND RED SKIN PER SON Time Seen by Provider: 06/26/18 17:41 Hx Obtained From: Patient Mechanism Of Injury: Unknown Severity Currently: None Pain Intensity: 0 Pain Scale Used: 0-10 Numeric Associated Signs And Symptoms: Positive: Swelling, Redness Alleviating Factor(s): Rest, Elevation Able to Bear Weight: Yes - Allergies/Home Medications Allergies/Adverse Reactions: Allergies Allergy/AdvReac Type Severity Reaction Status Date / Time No Known Allergies Allergy Verified 02/14/18 17:17 PMH/Surg Hx/FS Hx/Imm Hx Endocrine/Hematology History: Reports: Hx Thyroid Disease Cardiovascular History: Reports: Hx Hypercholesterolemia, Hx Hypertension Respiratory History: Reports: Hx Chronic Obstructive Pulmonary Disease (COPD) Sensory History: Denies: Hx Contacts or Glasses, Hx Hearing Aid Opthamlomology History: Denies: Hx Contacts or Glasses Neurological History: Reports: Hx Dementia - Surgical History Surgery Procedure, Year, and Place: L Hip replacement - L wrist fracture - partial thyroidectomy Infectious Disease History: No Infectious Disease History: Denies: Hx Hepatitis, Hx Shingles, Hx Tuberculosis, Traveled Outside the [place] in Last 30 Days - Family History Known Family History: Negative: Hypertension, Diabetes - Social History Alcohol Use: Rare Substance Use Type: Reports: None Hx Tobacco Use: Yes Smoking Status (MU): Current Every Day Smoker Type: Cigarettes Have You Smoked in the Last Year: Yes Review of Systems Constitutional: Negative Eyes: Negative ENT: Negative Cardiovascular: Negative Respiratory: Negative Gastrointestinal: Negative Genitourinary: Negative Musculoskeletal: Other Skin: Other Neurological: Negative Psychological: Normal All Other Systems Reviewed And Are Negative: Yes Physical Exam - Summary Physical Exam Summary: Calf soft Nontender. Mild erythema to left lower extremity distal to knee and proximal to left ankle. PMS intact distally on left foot. Mild nonpitting edema. Triage Information Reviewed: Yes Vital Signs On Initial Exam: Initial Vitals Temp Pulse Resp BP Pulse Ox 97.3 F 61 16 139/78 94 06/26/18 16:41 06/26/18 16:41 06/26/18 16:41 06/26/18 16:41 06/26/18 16:41 Vital Signs Reviewed: Yes Appearance: Positive: Well-Appearing Skin: Positive: Warm Head/Face: Positive: Normal Head/Face Inspection Neck: Positive: Supple Respiratory/Lung Sounds: Positive: Clear to Auscultation Cardiovascular: Positive: Normal Abdomen Description: Positive: Nontender Musculoskeletal: Positive: Normal Neurological: Positive: Normal Psychiatric: Positive: Normal AVPU Assessment: Alert - Andi Coma Scale Best Eye Response: 4 - Spontaneous Best Motor Response: 6 - Obeys Commands Best Verbal Response: 5 - Oriented Coma Scale Total: 15 Diagnostics - Vital Signs Vital Signs Temp Pulse Resp BP Pulse Ox 06/26/18 16:41 97.3 F 61 16 139/78 94 - Laboratory Lab Statement: Any lab studies that have been ordered have been reviewed, and results considered in the medical decision making process. Lower Extremity Course/Dx - Course Course Of Treatment: Patient complains of swelling and redness to left lower extremity starting this morning. Denies pain. She ambulatory. States swelling and redness have improved since this morning. Patient has history of knee surgery in March 2018 for tibial plateau fracture. X-ray of left knee 05/09/18 normal. Patient concerned about possible blood clot. No anti- coagulation. Denies fever, cough, sore throat, CP, SOB, N/V/V abdominal pain, change in urine, change in BM, calf tenderness, history of blood clots, history of long travel, history of recent trauma, history of cancer. Physical exam: Calf soft Nontender. Mild erythema to left lower extremity distal to knee and proximal to left ankle. PMS intact distally on left foot. Mild nonpitting edema. Vital signs within normal limits. Ultrasound of lower extremity negative for DVT. - Diagnoses Provider Diagnoses: Swelling of lower extremity Discharge - Sign-Out/Discharge Documenting (check all that apply): Patient Departure Patient Received Moderate/Deep Sedation with Procedure: No - Discharge Plan Condition: Stable Disposition: HOME Patient Education Materials: Leg Edema (ED) Referrals: No Primary Care Phys,NOPCP [Primary Care Provider] - Additional Instructions: Rest. Elevation of left lower extremity. Follow-up with your orthopedic surgeon. Return to the ED for any new or worsening symptoms. - Billing Disposition and Condition Condition: STABLE Disposition: Home
[2018-06-26 20:16] VITALS: BP 134/60
== END 2018-06-26 20:14 | disposition home or self-care (01) ==
LOC: ED 16:20
DX: R22.42 Localized swelling, mass and lump, left lower limb (principal); E07.9 Disorder of thyroid, unspecified; E78.00 Pure hypercholesterolemia, unspecified; I10 Essential (primary) hypertension; F17.210 Nicotine dependence, cigarettes, uncomplicated
CPT/HCPCS: 99281

== ENCOUNTER 2019-01-24 05:44 | Day surgery (SDC) | payer MEDICARE, OTHER ==
[2019-01-24] MEDS ORDERED: Bupivacaine 0.25% EPI 200,000* 30 ML SDV ONE (06:57)
[2019-01-24] MEDS ORDERED: Sodium Citrate/Citric Acid* 15 ML UDC ONE (06:59)
[2019-01-24] MEDS ORDERED: ceFAZolin 2 GM in NS PREMIX(*) 2 GM/100 ML BAG IVPB ONE (06:59)
[2019-01-24] MEDS ORDERED: Naloxone* 0.4 MG/ML 1 ML VIAL IV PRN (07:28)
[2019-01-24] MEDS ORDERED: Acetaminophen IV 1GM/100ML * 1,000 MG/100 ML VIAL IVPB ONE (07:28)
[2019-01-24] MEDS ORDERED: Ondansetron INJ* 2 MG/ML VIAL IV PRN (07:28)
[2019-01-24] MEDS ORDERED: Buffered Lidocaine 1% SYRIN* 1 ML/SYRINGE INTRADERM ONE (07:29)
[2019-01-24] MEDS ORDERED: Propofol* 10 MG/ML 20 ML BTL ONE (07:36)
[2019-01-24] MEDS ORDERED: Lidocaine 2% PF * 5 ML VIAL ONE (07:36)
[2019-01-24] MEDS ORDERED: fentaNYL* 50 MCG/ML 2 ML VIAL (100 MCG VIAL) ONE ×2 (07:40→09:16)
[2019-01-24] MEDS ORDERED: Acetaminophen IV 1GM/100ML * 100 ML ONE (09:16)
[2019-01-24] MEDS: fentaNYL* 50 MCG/ML 2 ML VIAL (100 MCG VIAL) IV PRN ×4 (09:18→10:03)
[2019-01-24 10:53] VITALS: BP 121/64
--- NOTE | 2019-01-24 22:44 | OP ---
OPERATIVE REPORT: DATE OF OPERATION: 01/24/19 DATE OF : 33 SURGEON: Tyson Michael MD. CITY TAX AUDITOR: SHARON Walker. A physician neurosurgical physician assistant was required for the length of procedure for assistance with patient positioning, retraction, instrumentation, and closure. ANESTHESIOLOGIST: Dr. Chase Rivera. ANESTHESIA: General anesthesia, local anesthesia with approximately 20 cc of Marcaine 0.25% with epinephrine. PRE-OP DIAGNOSES: 1. Status post 02/16/18 open reduction and internal fixation of left tibial plateau fracture, Schatzker grade 5 with medial and lateral locking plates. 2. Non-healing wound, lateral lower leg, left. POST-OP DIAGNOSES: 1. Status post 02/16/18 open reduction and internal fixation of left tibial plateau fracture, Schatzker grade 5 with medial and lateral locking plates. 2. Non-healing wound, lateral lower leg, left. OPERATIVE PROCEDURES: 1. Removal of hardware, deep, left lateral tibial plateau plate. 2. Incision, irrigation, debridement and drainage, left lower leg. ANTIBIOTICS: Ancef 2 g IV. IV FLUIDS: See anesthesia note. [id number] TIME: 36 minutes. TOURNIQUET TIME: 40 minutes at 300 mmHg, left thigh tourniquet. RADIATION: Several images taken with a large C-arm. SPECIMEN: Anaerobic and aerobic culture swabs, left lateral lower leg, wound. Also removed was a Synthes lateral tibial plateau plate with multiple nonlocking and locking screws. IMPLANTS: None. ESTIMATED BLOOD LOSS: Minimal. COMPLICATIONS: None. INDICATIONS FOR PROCEDURE: The patient is an 83-year-old woman, demented, thin , who on 02/16/18 underwent an uneventful open reduction and internal fixation of a high-grade left medial and lateral tibial plateau fracture, Schatzker grade 5. At some point in the postoperative course, the patient was noted to have a wound about the lateral incision, at about the level of the rim of the plateau. This was a superficial wound. The patient was sent to Wound Clinic. The patient went to Wound Clinic for a period of weeks or months. The patient stopped going to the Wound Clinic. The patient did not follow up with Wound Clinic or me for some time. Multiple months later, the patient followed up with me. She still had a wound, although it was only 1 or 3 mm in diameter. I sent the patient back to the Wound Clinic. The wound was probed and the plate was noted to be prominent or rather visible through the skin hole. For this reason , the Wound Clinic recommended that the hardware be removed. Not when I first saw the patient, but when the patient returned to clinic, she had developed some erythema about the skin adjacent to the open wound. The patient also had a small amount of nonhealing-type drainage. She had no erythema or soft tissue swelling about the medial lower leg. I discussed with the patient and her operative or nonoperative management. We discussed removal of both plates or removal of just the lateral plate. We decided after discussing several times this topic that I would remove the lateral plate and then intraoperatively, based on a variety of factors including bone healing; bone density; and spread of any possible infection, decide to remove or not remove the medial tibial plateau plate. I discussed risks and potential complications including future need to remove the medial plate. Also discussed possible fracture with a fall through prior screw holes in the bone. DESCRIPTION OF PROCEDURE: In preoperative holding, the patient's signed a written consent. Operative extremity was marked in preoperative holding. The patient was taken back to the operating room and placed supine on the operating room table. Sedated and intubated. Bone foam was placed under the left lower extremity. Tourniquet was placed on the left thigh. The left lower extremity was prepped and draped. Surgical time-out performed. Esmarch applied and tourniquet elevated to 300 mmHg. I inserted local anesthesia, Marcaine 0.25% with epinephrine, about the subcutaneous tissues about both medial and lateral incision scars prior to the start of the operation prior to my incision of the skin. I made a surgical incision in the skin through the prior lateral incision scar. I removed several millimeters of skin and subcutaneous tissue sharply with a knife on either side of the open wound, sinus. I sent that tissue for pathology. I dissected down to the fascial layer and released tissue off of the fascia itself. Identified Ethibond sutures that had been left in the prior surgical procedure. The plate was visible about the rim of the plateau level proximal to distal. Incised the fascia as it had been incised previously, longitudinally, up to just proximal to the joint line. I dissected down to plate and visualized it along its length. There was no pus. No significant purulent tissue of any nature. I removed the lateral plate and screws. Prior to removing the plate, I had obtained culture swabs, aerobic and anaerobic , of the tissue superficial to the plate just underlying that open wound. Debridement of any fibrous tissue about the bone that had been adherent to the plate. I used a curet in all the bone screw tunnels. Irrigated with 3 L of normal saline in the wound. After removing the plate and irrigating the wound very well and having removed all of any loose fibrous tissue, I next took a good look at the wound. There was no visible hardware, screws from the medial plate. There was no tracking of the space to medial to the anterior crest of the tibia or posteriorly. The space in which the plate was residing was fully walled off on to itself. For this reason, I thought it very unlikely that the medial hardware could be involved with any glycocalyx formation if there were any deep infection. I obtained some x-ray images with the C-arm. These showed fracture union, but showed osteopenic bone. Ultimately, I decided to leave the medial plate given the patient's dementia and fall risk and her osteopenia. As well, the lack of visualization of any of the medial hardware or the lack of any fulminant infection made this an easy decision. Closure of the fascia layer with [id number] stitches using Vicryl 0 suture. Closure of the subcutaneous tissue with buried simple stitches using Vicryl 2-0 suture. Closure of the skin with carlito. Dressing consisted of Xeroform, 4x4s, sterile Webril, and then Mikey bandage from foot to groin. The patient was awakened, extubated, and transferred to the PACU. DISPOSITION: The patient is to be weightbearing as tolerated. Wound care instructions provided. The patient was given a narcotic for pain control. For any latent infection treatment and for at least some cellulitis that the patient had present preoperatively about the open wound, I prescribed doxycycline 100 mg by mouth twice daily. I chose this rather than Keflex because the patient's described that it is difficult for her to take any medication 3 times a day because she takes medications at her 's request and the 2 of them overlap their awake hours minimally at times. For that reason, I picked doxycycline. The patient will follow up with me in the clinic 10 to 14 days postoperatively. We will follow up on the patient's operative cultures and adjust antibiotics accordingly. Tentatively, I had planned on 4 weeks total of oral antibiotics postoperatively. [id number]/[facility] #: [id number] [facility]
[2019-01-25] MEDS ORDERED: Lactated Ringers 1000 ML Bag* 1,000 ML IV SCH (06:00)
== END 2019-01-24 11:10 | disposition home or self-care (01) ==
LOC: OR 05:44
PROVIDERS: ATTEND Orthopaedic Surgery
DX: T81.31XD Disruption of external operation (surgical) wound, not elsewhere classified, subsequent encounter (principal); S82.142D Displaced bicondylar fracture of left tibia, subsequent encounter for closed fracture with routine healing; F17.210 Nicotine dependence, cigarettes, uncomplicated; E78.00 Pure hypercholesterolemia, unspecified; X58.XXXD Exposure to other specified factors, subsequent encounter; Y92.9 Unspecified place or not applicable
CPT/HCPCS: 87070; 87073; 87076; 87205; 88300; 88304; A9270-GY; J0690; J2704; J3010

== ENCOUNTER 2021-08-07 21:04 | Inpatient (IN) ==
[2021-08-08 00:35] LABS: ABS Eosinophils 0.1 10^3/ul (0-0.6); ABS Lymphocytes 1.7 10^3/ul (1.0-4.8); ABS Monocytes 0.6 10^3/ul (0-0.8); ABS Neutrophils 7.4 10^3/ul (1.5-7.7); Eosinophil % 0.8 %; Hematocrit 38 % (35-47); Hemoglobin 12.7 g/dL (12.0-16.0); Mean Corpuscular HGB Conc 33 g/dL (31-36); Mean Corpuscular Hemoglobin 34 pg (27-31); Mean Corpuscular Volume 103 fL (80-97); Mean Platelet Volume 7.8 fL (7.4-10.4); Platelet Count 316 10^3/uL (150-450); Red Blood Count 3.71 10^6 /uL (3.70-4.87); Red Cell Distribution Width 16 % (10-15); White Blood Count 9.7 10^3/uL (3.5-10.8)
[2021-08-08] MEDS ORDERED: Magnesium Sulfate 2 gm BAG 2 GM/50 ML BAG IVPB ONE (01:03)
[2021-08-08 01:21] LABS: Albumin 3.4 g/dL (3.2-5.2); Anion Gap 7 mmol/L (2-11); CO2 Carbon Dioxide 26 mmol/L (22-32); Calcium 8.4 mg/dL (8.6-10.3); Chloride 103 mmol/L (101-111); Magnesium 1.8 mg/dL (1.9-2.7); Potassium 3.4 mmol/L (3.5-5.0); Sodium 136 mmol/L (135-145)
[2021-08-08] MEDS ORDERED: Potassium Chlor 20 meq TAB.ER PO ONE (01:22)
[2021-08-08 01:27] LABS: ALT 69 U/L (7-52); AST 109 U/L (13-39); Albumin/Globulin Ratio 1.7 (1-3); Alkaline Phosphatase 104 U/L (35-149); Blood Urea Nitrogen 12 mg/dL (6-24); C Reactive Protein 16.79 mg/L (<8.01); Glucose 83 mg/dL (70-100); Total Protein 5.4 g/dL (6.4-8.9); eGFR CKD-EPI 51.4 (>60)
[2021-08-08 01:38] LABS: TSH Ultra Thyroid Stim Horm 7.38 mcIU/mL (0.34-5.60)
[2021-08-08 01:49] LABS: Folate 14.48 ng/mL (5.90-24.80)
[2021-08-08 01:59] LABS: Vitamin D Total 25(OH) < 7.0 ng/mL (20-50)
[2021-08-08] MEDS ORDERED: Vancomycin per Pharmacy 1 EA NOTE FOLLOW UP SCH (02:00)
[2021-08-08] MEDS ORDERED: Vancomycin 1,000 MG - ED ONCE IVPB ONE (02:30)
[2021-08-08] MEDS: cefTRIAXone 2 gm/50 mL D5W 2 GM/50 ML BAG IV SCH (03:29)
[2021-08-08 03:42] LABS: Urine Appearance Cloudy; Urine Bilirubin Negative (Negative); Urine Blood 1+ (Negative); Urine Color Yellow; Urine Glucose Negative (Negative); Urine Ketones Negative (Negative); Urine Nitrite Negative (Negative); Urine Protein Negative (Negative); Urine Specific Gravity 1.006 (1.002-1.030); Urine Urobilinogen Negative (Negative)
[2021-08-08 03:43] LABS: Urine Bacteria 1+ (Absent); Urine Red Blood Cell Trace(0-2/hpf) (Absent); Urine Squamous Epithelial Cell Present (Absent); Urine White Blood Cell Trace(0-5/hpf) (Absent)
[2021-08-08] MEDS ORDERED: Lactated Ringers 1000 ml BAG 1,000 ML IV ONE ×2 (04:52)
[2021-08-08] MEDS: Enoxaparin 30 MG/0.3 ML SYR SUBCUT SCH (08:41)
[2021-08-08] MEDS ORDERED: Cholecalciferol (VIT D3) 50,000 UNIT CAP (NF) PO SCH (09:00)
[2021-08-08 14:37] LABS: T4, Total 10.33 mcg/dL (6.09-12.23)
[2021-08-08 14:49] LABS: Free T4 0.67 ng/dL (0.61-1.12)
[2021-08-08 14:50] LABS: Vitamin B12 84 pg/mL (180-914)
[2021-08-08] MEDS ORDERED: Cyanocobalamin INJ 1,000 MCG/ML VIAL 1 ML VIAL IM ONE (15:34)
[2021-08-08] MEDS ORDERED: Lactated Ringers 1000 ml BAG 1,000 ML IV SCH (17:00)
[2021-08-08] MEDS ORDERED: Haloperidol 5 mg/ml SDV IV/IM 5 MG/ML AMP IV SLOW PU ONE (17:12)
[2021-08-08] MEDS ORDERED: Haloperidol 5 mg/ml SDV IV/IM 5 MG/ML AMP ONE (17:15)
[2021-08-08] MEDS: Nicotine PATCH 14 MG/24 HR PATCH TRANSDERM SCH (17:28)
[2021-08-08] MEDS ORDERED: Simvastatin 10 mg TAB (NF) PO SCH (18:00)
[2021-08-08] MEDS ORDERED: Haloperidol 5 mg/ml SDV IV/IM 5 MG/ML AMP IV SLOW PU PRN (18:20)
[2021-08-08] MEDS: Mupirocin 2% OINT TUBE TOPICAL SCH (20:10)
[2021-08-09 05:30] LABS: ABS Eosinophils 0.1 10^3/ul (0-0.6); ABS Lymphocytes 0.9 10^3/ul (1.0-4.8); ABS Monocytes 0.7 10^3/ul (0-0.8); ABS Neutrophils 10.4 10^3/ul (1.5-7.7); Eosinophil % 0.6 %; Hematocrit 34 % (35-47); Lymphocyte % 7.2 %; Mean Corpuscular HGB Conc 32 g/dL (31-36); Mean Corpuscular Hemoglobin 34 pg (27-31); Mean Corpuscular Volume 104 fL (80-97); Mean Platelet Volume 8.1 fL (7.4-10.4); Platelet Count 300 10^3/uL (150-450); Red Blood Count 3.25 10^6 /uL (3.70-4.87); Red Cell Distribution Width 16 % (10-15)
[2021-08-09] MEDS: cefTRIAXone 2 gm/50 mL D5W 2 GM/50 ML BAG IV SCH (05:33)
[2021-08-09 05:59] LABS: Magnesium 1.9 mg/dL (1.9-2.7); Potassium 4.2 mmol/L (3.5-5.0); eGFR CKD-EPI 64.4 (>60)
[2021-08-09] MEDS: Vancomycin 750 MG in NS 0.9% 250 ML IVPB SCH (06:17)
[2021-08-09] MEDS: Nicotine PATCH 14 MG/24 HR PATCH TRANSDERM SCH (07:38)
[2021-08-09] MEDS: Enoxaparin 30 MG/0.3 ML SYR SUBCUT SCH (07:39)
[2021-08-09] MEDS: Mupirocin 2% OINT TUBE TOPICAL SCH ×2 (07:45→21:49)
[2021-08-09] MEDS ORDERED: Cyanocobalamin INJ 1,000 MCG/ML VIAL 1 ML VIAL IM ONE (09:43)
[2021-08-09 13:17] LABS: Albumin/Globulin Ratio 1.7 (1-3); Direct Bilirubin 0.1 mg/dL (0.03-0.18); Globulin 1.8 g/dL (2-4); Indirect Bilirubin 0.3 mg/dL (0.3-1.0); Total Bilirubin 0.4 mg/dL (0.2-1.0); Total Protein 4.8 g/dL (6.4-8.9)
[2021-08-09] MEDS: CMC:Simvastatin 10 mg TAB (NF) PO SCH (16:38)
[2021-08-10] MEDS: cefTRIAXone 2 gm/50 mL D5W 2 GM/50 ML BAG IV SCH (05:17)
[2021-08-10 06:14] LABS: ABS Eosinophils 0.2 10^3/ul (0-0.6); ABS Monocytes 0.6 10^3/ul (0-0.8); ABS Neutrophils 7.9 10^3/ul (1.5-7.7); Eosinophil % 1.9 %; Hematocrit 35 % (35-47); Hemoglobin 11.2 g/dL (12.0-16.0); Lymphocyte % 10.2 %; Mean Corpuscular HGB Conc 33 g/dL (31-36); Mean Corpuscular Hemoglobin 34 pg (27-31); Mean Corpuscular Volume 104 fL (80-97); Mean Platelet Volume 8.1 fL (7.4-10.4); Platelet Count 318 10^3/uL (150-450); Red Blood Count 3.33 10^6 /uL (3.70-4.87); Red Cell Distribution Width 16 % (10-15); White Blood Count 9.7 10^3/uL (3.5-10.8)
[2021-08-10] MEDS: Vancomycin 750 MG in NS 0.9% 250 ML IVPB SCH (06:15)
[2021-08-10 06:36] LABS: Calcium 8.2 mg/dL (8.6-10.3); Potassium 4.1 mmol/L (3.5-5.0); eGFR CKD-EPI 73.5 (>60)
[2021-08-10 07:52] LABS: Albumin 2.9 g/dL (3.2-5.2); Albumin/Globulin Ratio 1.5 (1-3); Direct Bilirubin 0.1 mg/dL (0.03-0.18); Indirect Bilirubin 0.3 mg/dL (0.3-1.0); Total Bilirubin 0.4 mg/dL (0.2-1.0); Total Protein 4.9 g/dL (6.4-8.9)
[2021-08-10] MEDS: CMC:Simvastatin 10 mg TAB (NF) PO SCH (09:10)
[2021-08-10] MEDS: Enoxaparin 30 MG/0.3 ML SYR SUBCUT SCH (09:10)
[2021-08-10] MEDS: Mupirocin 2% OINT TUBE TOPICAL SCH ×2 (09:11→20:20)
[2021-08-10] MEDS: Nicotine PATCH 14 MG/24 HR PATCH TRANSDERM SCH (09:11)
[2021-08-11] MEDS: cefTRIAXone 2 gm/50 mL D5W 2 GM/50 ML BAG IV SCH (05:01)
[2021-08-11] MEDS ORDERED: Vancomycin Trough Check NOTE FOLLOW UP ONE (05:30)
[2021-08-11 06:22] LABS: Vancomycin Trough 9.6 mcg/mL; eGFR CKD-EPI 78.3 (>60)
[2021-08-11 06:35] VITALS: BP 126/58
[2021-08-11] MEDS: Enoxaparin 30 MG/0.3 ML SYR SUBCUT SCH (08:37)
[2021-08-11] MEDS: Mupirocin 2% OINT TUBE TOPICAL SCH (08:37)
[2021-08-11] MEDS: Nicotine PATCH 14 MG/24 HR PATCH TRANSDERM SCH (08:38)
[2021-08-11] MEDS: CMC:Simvastatin 10 mg TAB (NF) PO SCH (08:38)
== END 2021-08-11 11:35 | disposition home or self-care (01) | DRG 603 ==
LOC: ED 21:04 → SUATTDRO 08-08 00:42 → EDHOLD 08-08 00:42 → MED 08-08 02:56
PROVIDERS: ADMIT Internal Medicine; ATTEND Student in an Organized Health Care Education/Training Program

== ENCOUNTER 2021-11-09 05:57 | Inpatient (IN) ==
[2021-11-09 08:05] LABS: ABS Basophils 0.1 10^3/ul (0-0.2); ABS Eosinophils 0.2 10^3/ul (0-0.6); ABS Lymphocytes 1.7 10^3/ul (1.0-4.8); ABS Neutrophils 6.3 10^3/ul (1.5-7.7); Eosinophil % 1.8 %; Hematocrit 40 % (35-47); Hemoglobin 13.3 g/dL (12.0-16.0); Lymphocyte % 18.3 %; Mean Corpuscular HGB Conc 33 g/dL (31-36); Mean Corpuscular Hemoglobin 28 pg (27-31); Mean Corpuscular Volume 85 fL (80-97); Mean Platelet Volume 7.7 fL (7.4-10.4); Platelet Count 346 10^3/uL (150-450); Red Blood Count 4.68 10^6 /uL (3.70-4.87); Red Cell Distribution Width 15 % (10-15); White Blood Count 9.2 10^3/uL (3.5-10.8)
[2021-11-09 08:11] LABS: Urine Appearance Clear; Urine Bilirubin Negative (Negative); Urine Color Straw; Urine Glucose Negative (Negative); Urine Ketones Negative (Negative); Urine Specific Gravity <=1.005 (1.005-1.030)
[2021-11-09 08:12] LABS: Urine Blood Negative (Negative); Urine Nitrite Negative (Negative); Urine Protein Negative (Negative); Urine Urobilinogen 0.2 (Negative) (Negative)
[2021-11-09 08:16] LABS: Urine Bacteria 1+ (Absent); Urine Red Blood Cell Trace(0-2/hpf) (Absent); Urine Squamous Epithelial Cell Present (Absent); Urine White Blood Cell Trace(0-5/hpf) (Absent)
[2021-11-09 08:39] LABS: Albumin 3.9 g/dL (3.2-5.2); Albumin/Globulin Ratio 1.5 (1-3); Calcium 9.5 mg/dL (8.6-10.3); Globulin 2.6 g/dL (2-4); Potassium 4.6 mmol/L (3.5-5.0); Total Bilirubin 0.4 mg/dL (0.2-1.0); Total Protein 6.5 g/dL (6.4-8.9); eGFR CKD-EPI 53.2 (>60)
[2021-11-09 08:51] LABS: TSH Ultra Thyroid Stim Horm 5.02 mcIU/mL (0.34-5.60)
[2021-11-09] MEDS ORDERED: Lactated Ringers 1000 ml BAG 1,000 ML IV ONE ×2 (12:39→13:41)
[2021-11-09] MEDS ORDERED: Enoxaparin 40 MG/0.4 ML SYR SUBCUT SCH (14:00)
[2021-11-09 14:15] LABS: C Reactive Protein 6.18 mg/L (<8.01)
[2021-11-09] MEDS ORDERED: Lactated Ringers 1000 ml BAG 1,000 ML IV SCH (15:00)
[2021-11-09 16:24] LABS: Vitamin D Total 25(OH) 36.5 ng/mL (20-50)
[2021-11-09] MEDS ORDERED: Cyanocobalamin INJ 1,000 MCG/ML VIAL 1 ML VIAL IM ONE (20:00)
[2021-11-10 05:57] LABS: Hematocrit 38 % (35-47); Hemoglobin 12.5 g/dL (12.0-16.0); Mean Corpuscular HGB Conc 33 g/dL (31-36); Mean Corpuscular Hemoglobin 28 pg (27-31); Mean Corpuscular Volume 85 fL (80-97); Mean Platelet Volume 7.7 fL (7.4-10.4); Platelet Count 287 10^3/uL (150-450); Red Blood Count 4.48 10^6 /uL (3.70-4.87); Red Cell Distribution Width 15 % (10-15); White Blood Count 6.1 10^3/uL (3.5-10.8)
[2021-11-10 06:15] LABS: Calcium 8.5 mg/dL (8.6-10.3); Magnesium 1.7 mg/dL (1.9-2.7); Potassium 4.5 mmol/L (3.5-5.0)
[2021-11-10] MEDS: Lactated Ringers 1000 ml BAG 1,000 ML IV SCH ×2 (06:19→16:59)
[2021-11-10] MEDS: CMCS: Simvastatin 10 mg TAB (NF) PO SCH (07:55)
[2021-11-10] MEDS ORDERED: Magnesium Sulfate IV 3 GM in NS 0.9% 100 ml BAG 100 ML IVPB ONE (09:30)
[2021-11-10] MEDS: Enoxaparin 30 MG/0.3 ML SYR SUBCUT SCH (14:35)
[2021-11-11 05:49] LABS: Hematocrit 34 % (35-47); Mean Corpuscular HGB Conc 32 g/dL (31-36); Mean Corpuscular Hemoglobin 27 pg (27-31); Mean Corpuscular Volume 85 fL (80-97); Mean Platelet Volume 7.5 fL (7.4-10.4); Platelet Count 297 10^3/uL (150-450); Red Blood Count 4.01 10^6 /uL (3.70-4.87); Red Cell Distribution Width 15 % (10-15); White Blood Count 7.3 10^3/uL (3.5-10.8)
[2021-11-11 06:25] LABS: Calcium 8.4 mg/dL (8.6-10.3); Potassium 4.2 mmol/L (3.5-5.0); eGFR CKD-EPI 48.6 (>60)
[2021-11-11] MEDS ORDERED: Albuterol HFA INHALER 8 gm MDI INH PRN (08:34)
[2021-11-11] MEDS: Nicotine PATCH 14 MG/24 HR PATCH TRANSDERM SCH (09:00)
[2021-11-11] MEDS: CMCS: Simvastatin 10 mg TAB (NF) PO SCH (09:00)
[2021-11-11] MEDS: Enoxaparin 30 MG/0.3 ML SYR SUBCUT SCH (13:41)
[2021-11-12 07:26] LABS: Calcium 8.8 mg/dL (8.6-10.3); Magnesium 1.9 mg/dL (1.9-2.7); Potassium 4.1 mmol/L (3.5-5.0); eGFR CKD-EPI 66.3 (>60)
[2021-11-12] MEDS: CMCS: Simvastatin 10 mg TAB (NF) PO SCH (09:47)
[2021-11-12] MEDS: Nicotine PATCH 14 MG/24 HR PATCH TRANSDERM SCH (09:47)
[2021-11-12] MEDS: Enoxaparin 30 MG/0.3 ML SYR SUBCUT SCH (17:10)
[2021-11-13] MEDS: Nicotine PATCH 14 MG/24 HR PATCH TRANSDERM SCH (11:13)
[2021-11-13] MEDS: CMCS: Simvastatin 10 mg TAB (NF) PO SCH (11:20)
[2021-11-13] MEDS: Enoxaparin 30 MG/0.3 ML SYR SUBCUT SCH (14:18)
[2021-11-13 14:55] VITALS: BP 122/71
== END 2021-11-13 16:37 | disposition home or self-care (01) | DRG 71 ==
LOC: EDHOLD 05:57 → ED 05:57 → MEDTELE 23:46 → SUATTDRO 11-10 10:39
PROVIDERS: ADMIT Internal Medicine; ATTEND Internal Medicine